=== PATIENT | male | born 1940 | race Caucasian/White ===

== ENCOUNTER 2016-10-04 19:19 | Emergency (ER) | payer MEDICARE, OTHER ==
[2016-10-04] MEDS ORDERED: ONDANSETRON 4 MG TAB.RAPDIS PO ONE (19:48)
--- NOTE | 2016-10-04 19:49 | ER Document Report ---
ED Respiratory Problem - General Stated Complaint: COUGHING/COLD Time seen by provider: 19:40 Notes: Patient is a 76-year-old male that comes emergency department for chief complaint of 4 days of cough, patient states he feels like he has a raw sensation inside the left side of his chest and he has pains in his left upper back. He reports some nausea but denies vomiting, denies diarrhea, denies abdominal pain. He denies specific chest pain. He denies fever, he states he is not short of breath. 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 Patient states he is up-to-date on both influenza vaccine and pneumonia vaccine. TRAVEL OUTSIDE OF THE [place] IN LAST 30 DAYS: No - Related Data Allergies/Adverse Reactions: tiotropium bromide [From Spiriva with HandiHaler] Allergy (Intermediate, Verified 10/04/16 21:36) Blurred vision amiodarone Allergy (Verified 10/04/16 21:36) hydroxyzine [From Atarax] Allergy (Verified 10/04/16 21:36) FIRE ANTS Allergy (Uncoded 10/04/16 21:36) THROAT AND GLANDS SWELL Home Medications: Current Home Medications Aclidinium [place] [Tudorza Pressair for Inh] 400 mcg IN DAILY 10/04/16 [History ] Atorvastatin Calcium 20 mg PO DAILY 10/04/16 [History] Multivit,Ther Iron,Ca,FA & Min [Thera-M Caplet] 1 cap PO DAILY 10/04/16 [History ] Oxycodone HCl/Acetaminophen [Oxycodone-Acetaminophen 5-325] 1 tab PO Q6 [History] Past Medical History - General Information source: Patient - Social History Smoking Status: Current Every Day Smoker Smoking Education Provided: Yes - <3 min Frequency of alcohol use: None Drug Abuse: None Lives with: Spouse/Significant other Family History: Reviewed & Not Pertinent - Past Medical History Cardiac Medical History: Reports: Hx Heart Attack - 2012 has 2 stents, Hx Hypercholesterolemia, Hx Hypertension Denies: Hx Coronary Artery Disease Pulmonary Medical History: Reports: Hx COPD Denies: Hx Bronchitis, Hx Pneumonia Neurological Medical History: Denies: Hx Cerebrovascular Accident, Hx Seizures Malignancy Medical History: Reports Hx Renal (Kidney) Cancer, Reports Other - pancreatic tumor - removed Musculoskeltal Medical History: Reports Hx Arthritis Psychiatric Medical History: Reports: Hx Anxiety Past Surgical History: Reports: Hx Abdominal Surgery - whipple procedure, Hx Bowel Surgery - PIECE REMOVED, Hx Cardiac Catheterization - stent placement, Hx Cholecystectomy, Hx Coronary Stent, Hx Herniorrhaphy - SEVERAL, Hx Kidney ( Renal Surgery) - RIGHT NEPHRECTOMY, Hx Tonsillectomy - A CHILD. Denies: Hx Pacemaker - Immunizations Immunizations up to date: Yes Hx Diphtheria, Pertussis, Tetanus Vaccination: Yes Hx Pneumococcal Vaccination: 11/06/12 Review of Systems - Review of Systems Constitutional: No symptoms reported EENT: No symptoms reported Cardiovascular: See HPI Respiratory: See HPI Gastrointestinal: No symptoms reported Genitourinary: No symptoms reported Male Genitourinary: No symptoms reported Musculoskeletal: No symptoms reported Skin: No symptoms reported Hematologic/Lymphatic: No symptoms reported Neurological/Psychological: No symptoms reported Physical Exam - Vital signs Vitals: Temp Pulse Resp BP Pulse Ox 98.0 F 80 17 124/61 98 10/04/16 19:32 10/04/16 19:32 10/04/16 19:32 10/04/16 19:32 10/04/16 19:32 Interpretation: Normal - General General appearance: Appears well In distress: None - HEENT Head: Normocephalic, Atraumatic Eyes: Normal Conjunctiva: Normal Extraocular movements intact: Yes Eyelashes: Normal Pupils: PERRL Nasal: Normal Mouth/Lips: Normal Mucous membranes: Normal Pharynx: Normal Neck: Normal - Respiratory Respiratory status: No respiratory distress. No: Respiratory distress, Labored , Tachypnea Chest status: Nontender Breath sounds: Other - A few coarse breath sounds, no wheezing, no rhonchi, no rales Chest palpation: Normal - Cardiovascular Rhythm: Regular Heart sounds: Normal auscultation Murmur: No - Abdominal Inspection: Other - There is a dressing over the right lateral mid abdomen, there is a large scar leading up to the dressing which is horizontal, there is a small wound opening with a tiny amount of clearish drainage. Mild soreness around the dressing area. Otherwise soft and unremarkable abdomen. Distension: No distension Bowel sounds: Normal Tenderness: Nontender Organomegaly: No organomegaly - Back Back: Normal, Nontender. No: Tender - Extremities General upper extremity: Normal inspection, Nontender, Normal color, Normal ROM , Normal temperature General lower extremity: Normal inspection, Nontender, Normal color, Normal ROM , Normal temperature, Normal weight bearing. 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 Chest x-ray consistent with right lower lobe pneumonia. Patient not hypoxic, no tachypnea, clear lung sounds, patient is well-appearing and conversational on exam. Discussed findings with patient and significant other, cultures pending, patient is not febrile. Patient given Rocephin, doxycycline, after this and a discussion patient will follow-up with his primary care provider on Thursday, patient states he feels good and he wants to go home, discussed return precautions and patient and agree that they will return immediately if patient worsens in any way. - Vital Signs Vital signs: Temp Pulse Resp BP Pulse Ox 98.0 F 80 18 123/63 96 10/04/16 19:32 10/04/16 19:32 10/04/16 22:01 10/04/16 22:01 10/04/16 22:01 - Laboratory Result Diagrams: 10/04/16 20:20 10/04/16 20:20 Laboratory results interpreted by me: 10/04/16 10/04/16 20:20 20:20 RBC 3.99 L Hgb 11.7 L Hct 35.7 L RDW 14.7 H Eosinophils % 6.6 H Chloride 109 H Albumin 3.3 L Discharge - Discharge Clinical Impression: Cough Pneumonia Qualifiers: Pneumonia type: due to unspecified organism Laterality: right Lung location: lower lobe of lung Qualified Code(s): J18.1 - Lobar pneumonia, unspecified organism Condition: Stable Disposition: HOME, SELF-CARE Additional Instructions: X-ray is consistent with pneumonia. He has been given Rocephin, please continue the doxycycline as directed, please be reevaluated by your primary care provider on Thursday. Return to the emergency department immediately for any concerning or worsening symptoms (i.e. shortness of breath or difficulty breathing) Prescriptions: Doxycycline Hyclate 100 mg PO BID #14 capsule Referrals: GIORGIO ORTIZ MD [Primary Care Provider] - Follow up as needed
[2016-10-04 20:41] LABS: ABSOLUTE BASOPHILS # (AUTO) 0.1 10^3/uL (0.0-0.2); ABSOLUTE EOSINOPHILS # (AUTO) 0.5 10^3/uL (0.0-0.6); ABSOLUTE LYMPHOCYTES (AUTO) 1.5 10^3/uL (0.5-4.7); BASOPHILS % (AUTO) 0.7 % (0-2); EOSINOPHILS % (AUTO) 6.6 % (0-6); HEMATOCRIT 35.7 % (37.9-51.0); HEMOGLOBIN 11.7 g/dL (13.5-17.0); HGB HCT DIFFERENCE -0.6; LYMPHOCYTES % (AUTO) 18.3 % (13-45); MEAN CORPUSCULAR HEMOGLOBIN 29.3 pg (27.0-33.4); MEAN CORPUSCULAR HGB CONC 32.7 g/dL (32.0-36.0); MEAN CORPUSCULAR VOLUME 90 fl (80-97); RED BLOOD COUNT 3.99 10^6/uL (4.35-5.55); RED CELL DISTRIBUTION WIDTH 14.7 % (11.5-14.0); SEGMENTED NEUTROPHILS % (AUTO) 62.4 % (42-78)
[2016-10-04 20:53] LABS: ALANINE AMINOTRANSFERASE 32 U/L (21-72); ALBUMIN 3.3 g/dL (3.5-5.0); ALKALINE PHOSPHATASE 119 U/L (38-126); ANION GAP 7 (5-19); ASPARTATE AMINO TRANSFERASE 30 U/L (17-59); BILIRUBIN,TOTAL 0.2 mg/dL (0.2-1.3); BLOOD UREA NITROGEN 13 mg/dL (7-20); CALCIUM 9.2 mg/dL (8.4-10.2); CARBON DIOXIDE 24 mmol/L (22-30); CHLORIDE 109 mmol/L (98-107); CREATINE KINASE 160 U/L (55-170); CREATININE RESULT 1.06 mg/dL (0.52-1.25); GLUCOSE 81 mg/dL (75-110); POTASSIUM 4.3 mmol/L (3.6-5.0); TOTAL PROTEIN 6.3 g/dL (6.3-8.2)
[2016-10-04 21:04] LABS: CREATINE KINASE MB 4.31 ng/mL (<4.55)
[2016-10-04 21:06] LABS: TROPONIN I < 0.012 ng/mL
[2016-10-04] MEDS ORDERED: DOXYCYCLINE HYCLATE 100 MG TABLET PO ONE (21:22)
[2016-10-04] MEDS ORDERED: CEFTRIAXONE 1 GM/D5W RTU 50 ML IV ONE (21:22)
[2016-10-04 22:22] VITALS: BP 123/63
--- NOTE | 2016-10-05 11:14 | EKG REPORT ---
SEVERITY:- OTHERWISE NORMAL ECG - SINUS RHYTHM BORDERLINE LEFT AXIS DEVIATION : Confirmed by: Lee Collazo MD 05-Oct-2016 11:14:18
== END 2016-10-04 22:30 | disposition home or self-care (01) ==
LOC: ER 19:19
DX: J18.1 Lobar pneumonia, unspecified organism (principal); M54.89 Other dorsalgia; J44.9 Chronic obstructive pulmonary disease, unspecified; E78.00 Pure hypercholesterolemia, unspecified; I10 Essential (primary) hypertension; Z85.528 Personal history of other malignant neoplasm of kidney; Z90.49 Acquired absence of other specified parts of digestive tract; I25.2 Old myocardial infarction
CPT/HCPCS: 93005; 99284; 96374; 36415; 87040; 82553; 82550; 85025; 80053; 84484; 71020; 93010; A9270; J0696

== ENCOUNTER → 2016-10-17 | Outpatient (CLI) | payer MEDICARE, OTHER ==
[2016-10-17 13:38] LABS: APPEARANCE,URINE CLEAR; BILIRUBIN,URINE NEGATIVE (NEGATIVE); GLUCOSE, URINE NEGATIVE (NEGATIVE); KETONES,URINE NEGATIVE (NEGATIVE); LEUKOCYTE ESTERASE,URINE NEGATIVE (NEGATIVE); NITRITE,URINE NEGATIVE (NEGATIVE); PROTEIN,URINE NEGATIVE (NEGATIVE); URINE SPECIFIC GRAVITY 1.021; UROBILINOGEN,URINE NEGATIVE mg/dL (<2.0)
[2016-10-17 13:39] LABS: RBC,URINE 0-1 /HPF; WBC,URINE 0-1 /HPF
== END ==
LOC: RAD 11:43
PROVIDERS: ATTEND Family Medicine
DX: R07.1 Chest pain on breathing (principal); R10.9 Unspecified abdominal pain
CPT/HCPCS: 71260; 81001

== ENCOUNTER 2016-10-30 17:01 | Inpatient (IN) | payer MEDICARE, OTHER ==
[2016-10-30] MEDS ORDERED: CEFEPIME 2 GM/D5W RTU 50 ML IV SCH (18:30)
[2016-10-30] MEDS ORDERED: VANCOMYCIN HCL 0 MG in DEXTROSE 5%-WATER 250 ML IV NR (18:30)
--- NOTE | 2016-10-30 18:58 | PDOC H&P ---
History of Present Illness Admission Date/PCP: 10/30/16 17:01 GIORGIO ORTIZ MD Patient complains of: left sided chest pain and persistent cough with fever History of Present Illness: SHA GIRALDO is a 76 year old male presents to the hospital as a direct admit from Dr. Ortiz's office where he was seen in follow-up for a pneumonia. Several weeks ago he presented to the emergency department with complaint of left shoulder pain and was diagnosed with a right-sided pneumonia and placed on a ten-day course of doxycycline. He states he really didn't see much improvement during this time and so follow-up with his PCP and she placed him on Omnicef and prednisone. The prednisone seemed to alleviate much of his shoulder pain and he finished the second course of antibiotics 3 days ago. Since that time he has started having fevers of 101 with rigors at home again with recurrence of his cough and left shoulder pain. He is easily winded and wheezing off and on throughout the day. He has increased fatigue, decreased exercise tolerance. He describes the left shoulder pain is underneath his left shoulder blade, nonradiating and a constant aching pain without alleviating or exacerbating factors and no other associated symptoms. He has underlying COPD and wears nocturnal O2 at 3 L/m, he has not required supplemental oxygen through the day. He also has obstructive sleep apnea and is supposed to wear nocturnal CPAP but chooses not to. He was reportedly hemodynamically stable in her office with a room-air sat of 94% but a temperature of 102 and so we were asked to directly admit for further treatment and management. 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 Renal/ Medical History: Reports: Other - Status post nephrectomy Malignancy Medical History: Reports: Renal (Kidney) Cancer Musculoskeltal Medical History: Reports: Arthritis Hematology: Reports: Anemia Past Surgical History Past Surgical History: Reports: Cardiac Catheterization - stent placement, Cholecystectomy, Coronary Stent, Herniorrhaphy - SEVERAL, Tonsillectomy - A CHILD Denies: Pacemaker Social History Smoking Status: Current Every Day Smoker Cigarettes Packs Per Day: 5 Number of Years Smokin Last Time Smoked: 2 days ago Frequency of Alcohol Use: Occasional Hx Recreational Drug Use: No Drugs: None Hx Prescription Drug Abuse: No - Advance Directive Resuscitation Status: Full Code Family History Family History: Reviewed & Not Pertinent, CAD Parental Family History Reviewed: Yes Children Family History Reviewed: Yes Sibling(s) Family History Reviewed.: Yes Medication/Allergy Home Medications: Metoprolol Tartrate [Lopressor 50 mg Tablet] 50 mg PO DAILY 10/06/11 Primidone 250 mg PO BID 10/06/11 Aspirin [Ecotrin 81 mg EC Tablet] 81 mg PO DAILY 08/05/12 Ascorbic Acid [Vitamin C] 500 mg PO DAILY 11/01/12 Esomeprazole Magnesium [Nexium] 40 mg PO QAM 11/01/12 Nitroglycerin [Nitrostat 0.4 mg (1/150 Gr) Tabs 25/Bottle] 1 tab SL Q5MP PRN 07/06 Albuterol Sulfate [Ventolin HFA MDI 18 GM] 1 puff IH Q4H PRN 01/24/13 Fluticasone/Salmeterol [Advair 250-50 Diskus 28 dose] 1 inh IH Q12H 10/16/14 Aclidinium [place] [Tudorza Pressair for Inh] 400 mcg IN DAILY 10/04/16 Atorvastatin Calcium 20 mg PO DAILY 10/04/16 Multivit,Ther Iron,Ca,FA & Min [Thera-M Caplet] 1 cap PO DAILY 10/04/16 Oxycodone HCl/Acetaminophen [Oxycodone-Acetaminophen 5-325] 1 tab PO Q6 PRN 07/10 Allergies/Adverse Reactions: tiotropium bromide [From Spiriva with HandiHaler] Allergy (Intermediate, Verified 10/04/16 21:36) Blurred vision amiodarone Allergy (Verified 10/04/16 21:36) hydroxyzine [From Atarax] Allergy (Verified 10/04/16 21:36) FIRE ANTS Allergy (Uncoded 10/04/16 21:36) THROAT AND GLANDS SWELL Review of Systems Constitutional: PRESENT: chills, fever(s). ABSENT: headache(s), weight gain, weight loss Eyes: ABSENT: visual disturbances Ears: ABSENT: hearing changes Nose, Mouth, and Throat: ABSENT: sore throat Cardiovascular: PRESENT: dyspnea on exertion. ABSENT: chest pain, edema, orthropnea, palpitations Respiratory: PRESENT: cough, dyspnea, sputum. ABSENT: hemoptysis Gastrointestinal: ABSENT: abdominal pain, constipation, diarrhea, hematemesis, hematochezia, nausea, vomiting Genitourinary: ABSENT: dysuria, hematuria Musculoskeletal: ABSENT: joint swelling Integumentary: ABSENT: rash, wounds Neurological: ABSENT: abnormal gait, abnormal speech, confusion, dizziness, focal weakness, numbness, syncope, tingling Psychiatric: ABSENT: anxiety, depression Endocrine: ABSENT: cold intolerance, heat intolerance, polydipsia, polyuria Hematologic/Lymphatic: ABSENT: easy bleeding, easy bruising Physical Exam Vital Signs: Temp Pulse Resp BP Pulse Ox 98.6 F 81 16 123/63 97 10/30/16 17:32 10/30/16 17:32 10/30/16 17:32 10/30/16 17:32 10/30/16 17:32 Intake & Output 10/29/16 10/30/16 10/31/16 06:59 06:59 06:59 Weight 68.8 kg PHYSICAL EXAM GENERAL: NAD; well developed, well nourished; no obese; alert and oriented to person, place, time, situation HEENT: normocephalic, atraumatic; EOMI, PERRLA, no conjunctival injection, no scleral icterus; oral mucosa moist, neck supple, no LAD, normal ROM; no post oropharynx erythema or edema RESPIRATORY: no accessory muscle use, no increased WOB, good air entry bilaterally; no wheezes, rales, rhonchi; coarse crackles L>R CARDIO: no JVD; RRR; no systolic murmur; no tachycardia VASCULAR: no abdominal bruit; no pallor; 2+ radial, DP pulse; normal capillary refill GI: soft; nondistended; normal bowel sounds; no hepato spleno megaly; no rebound, rigidity, guarding; nontender; there is a long linear diagonal scar across the right abdomen and at the distalmost tip there is a small 1-1/2 cm opening of the wound that is losing a tannish creamy white, thick non- malodorous fluid NEURO: normal motor function; no gait abnls; no dysarthria; no nystagmus; tongue protrudes midline; MSK: 5/5 strength; normal ROM hips; ambulatory without assistance; no tenderness EXTREMITIES: no calf tender; no palpable cords in calf; no clubbing, cyanosis , pedal edema PSYCH: normal affect, normal mood SKIN: warm; moist; no petechiae; no telengectasias; no jaundice; Assessment & Plan - Diagnosis (1) Pneumonia Qualifiers: Pneumonia type: due to unspecified organism Lung location: unspecified part of lung Is this a current diagnosis for this admission?: YesPlan: He has a history of complicated pneumonia in the past with MRSA discovered in his sputum and requiring a prolonged course of antibiotics. He seems to be failing outpatient therapy with both Omnicef and doxycycline which should've provided good atypical coverage. He has not traveled outside the [facility], has not had a prolonged travel or immobility, has no sick contacts or exposure to tuberculosis or other unusual organisms that he is aware of and has no worrisome symptoms of lianne sputum, hemoptysis, history of cavitary lesions, night sweats or weight loss. He'll be admitted to a monitored bed for at least the first 24 hours, started on broad-spectrum antibiotics to cover pseudomonas and MRSA. Sputum and blood cultures will be sent. I see a CT scan of the chest on October 17 that showed faint airspace disease on the right but his lung exam seems much more pronounced and diffuse this evening so we will repeat the CT scan but do it without contrast due to his history of unilateral nephrectomy and chronic kidney disease stage II. We'll check routine labs including CBC, CMP, BNP, CK/MB, troponin and swab for influenza A and B (2) Coronary artery disease Qualifiers: Coronary Disease-Associated Artery/Lesion type: [place] artery [place] vs. transplanted heart: [place] heart Associated angina: without angina Qualified Code(s): I25.10 - Atherosclerotic heart disease of [place] coronary artery without angina pectoris Is this a current diagnosis for this admission?: NoPlan: By history has coronary stents and I do not feel his left shoulder pain as a cardiac equivalent, that being said will screen with EKG and first set of cardiac enzymes just to be safe while monitoring overnight for cardiac dysrhythmias. Otherwise continue his usual home regimen (3) Left shoulder pain Qualifiers: Chronicity: acute Qualified Code(s): M25.512 - Pain in left shoulder Is this a current diagnosis for this admission?: YesPlan: Unclear etiology, is not reproducible to exam. Follow up on the CT scan perhaps there is a pleuritic component to this. Hold on additional steroids at this time, provide mild analgesics as needed. (4) History of nephrectomy, unilateral Is this a current diagnosis for this admission?: YesPlan: We will need to keep this in mind when choosing dosages and testing because we want carefully protect his remaining kidney. (5) COPD (chronic obstructive pulmonary disease) Qualifiers: COPD type: unspecified COPD Qualified Code(s): J44.9 - Chronic obstructive pulmonary disease, unspecified Is this a current diagnosis for this admission?: YesPlan: No active bronchospasm at present moment wouldn't surprise me if this were to flare during his hospitalization. Treat with nebs for now, nocturnal supplemental O2 per usual home regimen (6) Nonhealing surgical wound Qualifiers: Encounter type: initial encounter Qualified Code(s): T81.89XA - Other complications of procedures, not elsewhere classified, initial encounter Is this a current diagnosis for this admission?: YesPlan: Cover with ABD bandage and dry gauze twice a day as they're doing at home. - Time Time Spent: 50 to 70 Minutes Medications reviewed and adjusted accordingly: Yes Anticipated discharge: Home Within: within 72 hours
[2016-10-30] MEDS ORDERED: ACETAMINOPHEN 325 MG TABLET PO PRN (18:59)
[2016-10-30] MEDS ORDERED: CEFEPIME HCL 2 GM in DEXTROSE 5%-WATER 50 ML IV ONE (19:00)
[2016-10-30] MEDS ORDERED: HYDROCODONE/ACETAMINOPHEN 5-325 MG TABLET PO PRN (19:00)
[2016-10-30] MEDS ORDERED: MORPHINE SULFATE 10 MG/ML INJ IV PRN (19:00)
[2016-10-30 19:56] LABS: ABSOLUTE EOSINOPHILS # (AUTO) 0.2 10^3/uL (0.0-0.6); ABSOLUTE LYMPHOCYTES (AUTO) 0.8 10^3/uL (0.5-4.7); ABSOLUTE MONOCYTES (AUTO) 1.1 10^3/uL (0.1-1.4); ABSOLUTE NEUT (AUTO) 5.2 10^3/uL (1.7-8.2); BASOPHILS % (AUTO) 0.5 % (0-2); HEMATOCRIT 37.3 % (37.9-51.0); HEMOGLOBIN 12.2 g/dL (13.5-17.0); HGB HCT DIFFERENCE -0.7; LYMPHOCYTES % (AUTO) 11.2 % (13-45); MEAN CORPUSCULAR HEMOGLOBIN 29.4 pg (27.0-33.4); MEAN CORPUSCULAR HGB CONC 32.7 g/dL (32.0-36.0); MEAN CORPUSCULAR VOLUME 90 fl (80-97); RED BLOOD COUNT 4.15 10^6/uL (4.35-5.55); RED CELL DISTRIBUTION WIDTH 15.1 % (11.5-14.0); SEGMENTED NEUTROPHILS % (AUTO) 71.3 % (42-78); WHITE BLOOD COUNT 7.4 10^3/uL (4.0-10.5)
[2016-10-30 20:17] LABS: ALANINE AMINOTRANSFERASE 59 U/L (21-72); ALBUMIN 3.4 g/dL (3.5-5.0); ALKALINE PHOSPHATASE 135 U/L (38-126); ANION GAP 10 (5-19); ASPARTATE AMINO TRANSFERASE 49 U/L (17-59); BILIRUBIN,TOTAL 0.3 mg/dL (0.2-1.3); BLOOD UREA NITROGEN 17 mg/dL (7-20); CALCIUM 9.1 mg/dL (8.4-10.2); CARBON DIOXIDE 22 mmol/L (22-30); CHLORIDE 107 mmol/L (98-107); CREATINE KINASE 88 U/L (55-170); GLUCOSE 85 mg/dL (75-110); POTASSIUM 4.3 mmol/L (3.6-5.0); SODIUM 138.8 mmol/L (137-145); TOTAL PROTEIN 6.6 g/dL (6.3-8.2)
[2016-10-30 20:29] LABS: TROPONIN I < 0.012 ng/mL
[2016-10-30] MEDS: NORMAL SALINE 1000 ML 1,000 ML IV PRN (20:29)
[2016-10-30] MEDS: GUAIFENESIN 600 MG TABLET.SA PO SCH (21:39)
[2016-10-30] MEDS ORDERED: LEVOFLOXACIN 750 MG/D5W RTU 750 MG/150 ML RTUPB IV ONE (22:00)
[2016-10-30] MEDS: VANCOMYCIN HCL 750 MG in DEXTROSE 5%-WATER 250 ML IV SCH (22:42)
[2016-10-31] MEDS ORDERED: PRIMIDONE 250 MG TABLET PO ONE ×2 (03:30→12:00)
[2016-10-31] MEDS: CEFEPIME HCL 2 GM in DEXTROSE 5%-WATER 50 ML IV SCH ×2 (05:42→17:27)
[2016-10-31] MEDS: LANSOPRAZOLE 15 MG TAB.RAP.DR PO SCH (05:42)
[2016-10-31 06:49] LABS: HEMATOCRIT 34.2 % (37.9-51.0); HEMOGLOBIN 11.3 g/dL (13.5-17.0); HGB HCT DIFFERENCE -0.3; MEAN CORPUSCULAR HEMOGLOBIN 29.6 pg (27.0-33.4); MEAN CORPUSCULAR VOLUME 90 fl (80-97); RED BLOOD COUNT 3.81 10^6/uL (4.35-5.55); RED CELL DISTRIBUTION WIDTH 14.9 % (11.5-14.0); WHITE BLOOD COUNT 5.8 10^3/uL (4.0-10.5)
[2016-10-31 07:49] LABS: BASOPHILS % (MANUAL) 1 % (0-2); EOSINOPHILS % (MANUAL) 5 % (0-6); LYMPHOCYTES % (MANUAL) 19 % (13-45); TOTAL CELLS COUNTED 100
[2016-10-31 07:50] LABS: ANISOCYTOSIS SLIGHT; BURR CELLS SLIGHT; OVALOCYTES SLIGHT; POIKILOCYTOSIS 1+
[2016-10-31] MEDS: ENOXAPARIN SODIUM INJ 40 MG/0.4 ML DISP.SYRIN SUBCUT SCH (08:15)
[2016-10-31] MEDS: VANCOMYCIN HCL 750 MG in DEXTROSE 5%-WATER 250 ML IV SCH ×2 (10:01→22:36)
[2016-10-31] MEDS: GUAIFENESIN 600 MG TABLET.SA PO SCH ×2 (10:01→21:28)
[2016-10-31] MEDS: PRIMIDONE 250 MG TABLET PO SCH ×2 (10:02→17:27)
[2016-10-31] MEDS: NORMAL SALINE 1000 ML 1,000 ML IV PRN (10:02)
[2016-10-31] MEDS ORDERED: DIAZEPAM 5 MG TABLET PO PRN (10:55)
[2016-10-31] MEDS ORDERED: PRIMIDONE 250 MG TABLET PO SCH (11:00)
[2016-10-31] MEDS ORDERED: DEXAMETHASONE SOD PHOS INJ 10 MG/1 ML VIAL IV ONE (11:45)
[2016-10-31] MEDS ORDERED: METOPROLOL SUCCINATE 50 MG TAB.SR.24H PO ONE (11:45)
--- NOTE | 2016-10-31 15:03 | PDOC PROGRESS REPORT ---
Subjective Progress Note for:: 10/31/16 Subjective:: reason for today's visit: f/u pneumonia, left sided chest pain hospital course: SHA GIRALDO is a 76 year old male presents to the hospital as a direct admit from Dr. Katz's office where he was seen in follow- up for a pneumonia. Several weeks ago he presented to the emergency department with complaint of left shoulder pain and was diagnosed with a right-sided pneumonia and placed on a ten-day course of doxycycline. He states he really didn't see much improvement during this time and so follow-up with his PCP and she placed him on Omnicef and prednisone. The prednisone seemed to alleviate much of his shoulder pain and he finished the second course of antibiotics 3 days ago. Since that time he has started having fevers of 101 with rigors at home again with recurrence of his cough and left shoulder pain. He is easily winded and wheezing off and on throughout the day. He has increased fatigue, decreased exercise tolerance. He describes the left shoulder pain is underneath his left shoulder blade, nonradiating and a constant aching pain without alleviating or exacerbating factors and no other associated symptoms. He has underlying COPD and wears nocturnal O2 at 3 L/m, he has not required supplemental oxygen through the day. He also has obstructive sleep apnea and is supposed to wear nocturnal CPAP but chooses not to. He was reportedly hemodynamically stable in her office with a room-air sat of 94% but a temperature of 102 and so we were asked to directly admit for further treatment and management. he was admitted to the hospital and labs remarkable only for a mild anemia, mild elevation of his BNP, good renal function, normal ecg and cardiac enzymes, neg flu screen and little else. I do not see an echo on record so that has been ordered for today. repeat ct chest looks frustratingly similar to the one performed in late Sep with persistent consolidation in the RLL, aortic and coronary calcifications and little else. Subjective: doesn't feel any different with broadening of his abx. still with same left sided chest pain, general malaise and ill feeling as before. denies palpitations, orthopnea, PND, N/V/D. ROS: per HPI plus a total of 10 systems reviewed, pertinent positives and negatives noted above, remaining systems negative. Physical Exam Vital Signs: Temp Pulse Resp BP Pulse Ox 98.6 F 78 16 125/66 97 10/31/16 13:00 10/31/16 14:00 10/31/16 13:00 10/31/16 13:00 10/31/16 13:00 Intake & Output 10/30/16 10/31/16 11/01/16 06:59 06:59 06:59 Intake Total 400 Output Total 1250 Balance -850 Weight 70.3 kg PHYSICAL EXAM GENERAL: NAD; well developed, well nourished; no obese; alert and oriented to person, place, time, situation HEENT: no conjunctival injection, no scleral icterus; oral mucosa moist, neck supple, no LAD, normal ROM; no post oropharynx erythema or edema RESPIRATORY: no accessory muscle use, no increased WOB, good air entry bilaterally; no wheezes, rales, rhonchi; coarse bilat crackles CARDIO: no JVD; RRR; no systolic murmur; no tachycardia; chest wall is nontender to palp VASCULAR: no abdominal bruit; no pallor; 2+ radial, DP pulse; normal capillary refill GI: soft; nondistended; normal bowel sounds; no rebound, rigidity, guarding; nontender; there is a long linear diagonal scar across the right abdomen and at the distal most tip there is a small 1-1/2 cm opening of the wound that is losing a tannish creamy white, thick non-malodorous fluid NEURO: normal motor function; no gait abnls; no dysarthria; no nystagmus; tongue protrudes midline; MSK: 5/5 strength; normal ROM hips; ambulatory without assistance; no tenderness EXTREMITIES: no calf tender; no palpable cords in calf; no clubbing, cyanosis , pedal edema PSYCH: normal affect, normal mood SKIN: warm; moist; no petechiae; no telengectasias; no jaundice; Results Laboratory Results: 10/31/16 05:27 10/30/16 19:40 10/30/16 10/30/16 10/31/16 19:40 19:40 05:27 WBC 7.4 5.8 RBC 4.15 L 3.81 L Hgb 12.2 L 11.3 L Hct 37.3 L 34.2 L MCV 90 90 MCH 29.4 29.6 MCHC 32.7 33.0 RDW 15.1 H 14.9 H Plt Count 214 184 Seg Neutrophils % 71.3 Not Reportable Lymphocytes % 11.2 L Not Reportable Monocytes % 15.0 H Not Reportable Eosinophils % 2.0 Not Reportable Basophils % 0.5 Not Reportable Absolute Neutrophils 5.2 Not Reportable Absolute Lymphocytes 0.8 Not Reportable Absolute Monocytes 1.1 Not Reportable Absolute Eosinophils 0.2 Not Reportable Absolute Basophils 0.0 Not Reportable Sodium 138.8 Potassium 4.3 Chloride 107 Carbon Dioxide 22 Anion Gap 10 BUN 17 Creatinine 1.10 Est GFR ( Amer) > 60 Est GFR (Non-Af Amer) > 60 Glucose 85 Calcium 9.1 Total Bilirubin 0.3 AST 49 ALT 59 Alkaline Phosphatase 135 H Total Protein 6.6 Albumin 3.4 L 10/30/16 10/30/16 19:40 19:40 Creatine Kinase 88 CK-MB (CK-2) 2.50 Troponin I < 0.012 NT-Pro-B Natriuret Pep 861 H labs reviewed, see HPI EKG Comments: NSR Impressions: Chest CT 10/30/16 00:00 IMPRESSION: EMPHYSEMATOUS CHANGES WITH CHRONIC SCARRING. MINIMAL RIGHT PLEURAL EFFUSION. PERSISTENT PATCHY DENSITY IN THE RIGHT COSTOPHRENIC SULCUS. NO SIGNIFICANT CHANGE. Status: Imported from PACS Assessment & Plan - Diagnosis (1) Pneumonia Qualifiers: Pneumonia type: due to unspecified organism Laterality: right Lung location: lower lobe of lung Qualified Code(s): J18.1 - Lobar pneumonia, unspecified organism Is this a current diagnosis for this admission?: YesPlan: He has a history of complicated pneumonia in the past with MRSA discovered in his sputum and requiring a prolonged course of antibiotics. He seems to be failing outpatient therapy with both Omnicef and doxycycline which should've provided at least good atypical coverage. He has not traveled outside the [facility], has not had any prolonged travel or immobility, has no sick contacts or exposure to tuberculosis or other unusual pathogens (ie legionella, etc) that he is aware of and has no worrisome symptoms of lianne sputum, hemoptysis, history of cavitary lesions, night sweats or weight loss. Continue broad-spectrum antibiotics to cover pseudomonas and MRSA. Sputum and blood cultures sent. I see a CT scan of the chest on October 17 that showed faint airspace disease on the right that persists on repeat CT Scan. (2) Coronary artery disease Qualifiers: Coronary Disease-Associated Artery/Lesion type: [place] artery [place] vs. transplanted heart: jena heart Associated angina: without angina Qualified Code(s): I25.10 - Atherosclerotic heart disease of j[place] coronary artery without angina pectoris Is this a current diagnosis for this admission?: NoPlan: By history has coronary stents but I do not feel his left shoulder pain is a cardiac equivalent and screen with EKG and first set of cardiac enzymes reassuring and monitoring overnight negative for cardiac dysrhythmias. ck echo today and continue his usual home regimen (3) Left shoulder pain Qualifiers: Chronicity: acute Qualified Code(s): M25.512 - Pain in left shoulder Is this a current diagnosis for this admission?: YesPlan: Unclear etiology, is not reproducible to exam. CT scan not very helpful, perhaps referred pain from the RLL airspace disease? add steroids and monitor for result. (4) History of nephrectomy, unilateral Is this a current diagnosis for this admission?: Yes (5) COPD (chronic obstructive pulmonary disease) Qualifiers: COPD type: unspecified COPD Qualified Code(s): J44.9 - Chronic obstructive pulmonary disease, unspecified Is this a current diagnosis for this admission?: Yes (6) Nonhealing surgical wound Qualifiers: Encounter type: initial encounter Qualified Code(s): T81.89XA - Other complications of procedures, not elsewhere classified, initial encounter Is this a current diagnosis for this admission?: Yes (7) Abnormal laboratory test Is this a current diagnosis for this admission?: YesPlan: elevated BNP; ck echo, do not see one in his chart. hold IVFs. - Time Time Spent with patient: 35 or more minutes
--- NOTE | 2016-10-31 17:52 | XCELERA REPORT ---
[address] [address] Transthoracic Echocardiogram Report Name: SHA GIRALDO Age: 76 yrs Gender: Male : 1940 Patient Status: Inpatient Patient Location: N\S\[facility]\S\A Study Date: 10/31/2016 03:05 PM Height: 69 in Weight: 154 lb BSA: 1.8 m2 Procedure: A two-dimensional transthoracic echocardiogram with color flow and Doppler was performed. The study was technically difficult with many images being suboptimal in quality. Reason For Study: DYSPNEA / ELEVATED BNP History: DYSPNEA / ELEVATED BNP. Ordering Physician: JIGAR LOPEZ Performed By: Caprice Wren Interpretation Summary The left ventricle is normal in size. There is normal left ventricular wall thickness. LV EF is 60% Left ventricular systolic function is normal. Doppler measurements suggest impaired left ventricular relaxation, which is associated with grade I/IV or mild diastolic dysfunction The left ventricular wall motion is normal. There is no thrombus. The right ventricle is grossly normal size. The right ventricle is not well visualized secondary to technical limitations The left atrial size is normal. There is no evidence of mitral valve prolapse. There is no mitral valve stenosis. There is no mitral regurgitation noted. There is no aortic valve stenosis There is no LVOT obstruction. No aortic regurgitation is present. There is no tricuspid stenosis. There is a trace amount of tricuspid regurgitation Right ventricular systolic pressure is normal. RVSP is 28 mm of Hg , with RA mean of 5. There is no pericardial effusion. Cannot eexclude small PFO. MMode/2D Measurements \T\ Calculations RVDd: 3.4 cm LVIDd: 4.6 cm FS: 41.6 % Ao root diam: 2.9 cm IVSd: 0.94 cm LVIDs: 2.7 cm EDV(Teich): 95.6 ml LVPWd: 0.88 cm ESV(Teich): 26.2 ml Ao root area: 6.6 cm2 EF(Teich): 72.6 % LA dimension: 3.1 cm Doppler Measurements \T\ Calculations MV E max valery: MV P1/2t max valery: Ao V2 max: LV V1 max P.8 cm/sec 89.3 cm/sec 114.0 cm/sec 3.1 mmHg MV A max valery: MV P1/2t: 43.0 msec Ao max PG: LV V1 max: 90.8 cm/sec 5.2 mmHg 87.9 cm/sec MV E/A: 0.99 MVA(P1/2t): 5.1 cm2 MV dec slope: 608.6 cm/sec2 MV dec time: 0.15 sec PA V2 max: PI end-d valery: TR max valery: 99.7 cm/sec 161.8 cm/sec 238.9 cm/sec PA max PG: TR max P.0 mmHg 22.8 mmHg Left Ventricle The left ventricle is normal in size. There is normal left ventricular wall thickness. LV EF is 60%. Left ventricular systolic function is normal. Doppler measurements suggest impaired left ventricular relaxation, which is associated with grade I/IV or mild diastolic dysfunction. The left ventricular wall motion is normal. There is no thrombus. There is no ventricular septal defect visualized. Right Ventricle The right ventricle is grossly normal size. The right ventricle is not well visualized secondary to technical limitations. Atria The right atrium is normal. The left atrial size is normal. Cannot eexclude small PFO. Mitral Valve There is no evidence of mitral valve prolapse. There is no vegetation seen on the mitral valve. There is no mitral valve stenosis. There is no mitral regurgitation noted. Aortic Valve There is no aortic valvular vegetation. There is no aortic valve stenosis. There is no LVOT obstruction. No aortic regurgitation is present. Tricuspid Valve There is no tricuspid stenosis. There is a trace amount of tricuspid regurgitation. Right ventricular systolic pressure is normal. RVSP is 28 mm of Hg , with RA mean of 5. Pulmonic Valve There is no pulmonic valvular stenosis. There is a trace amount of pulmonic regurgitation. Great Vessels The aortic root is normal size. Effusions There is no pericardial effusion. : JIGAR LOPEZ > Belinda Currie
[2016-10-31] MEDS: ALBUTEROL SULFATE 0.083% NEB 2.5 MG/3 ML AMPUL NEB PRN (19:22)
--- NOTE | 2016-10-31 19:42 | EKG REPORT ---
SEVERITY:- OTHERWISE NORMAL ECG - SINUS RHYTHM BORDERLINE LEFT AXIS DEVIATION : Confirmed by: Rosenda Ayala 31-Oct-2016 19:41:40
[2016-10-31] MEDS: FLUTICASONE/SALMETEROL DISKUS 250-50 MCG/DOSE IH SCH (21:28)
[2016-10-31] MEDS: LEVOFLOXACIN 750 MG/D5W RTU 750 MG/150 ML RTUPB IV SCH (21:28)
[2016-10-31] MEDS: ATORVASTATIN CALCIUM 20 MG TABLET PO SCH (21:28)
[2016-11-01] MEDS: CEFEPIME HCL 2 GM in DEXTROSE 5%-WATER 50 ML IV SCH ×2 (05:21→17:32)
[2016-11-01] MEDS: LANSOPRAZOLE 15 MG TAB.RAP.DR PO SCH (05:21)
[2016-11-01 07:07] LABS: ABSOLUTE LYMPHOCYTES (AUTO) 1.1 10^3/uL (0.5-4.7); ABSOLUTE NEUT (AUTO) 3.4 10^3/uL (1.7-8.2); BASOPHILS % (AUTO) 0.5 % (0-2); EOSINOPHILS % (AUTO) 0.6 % (0-6); HEMATOCRIT 34.2 % (37.9-51.0); HEMOGLOBIN 11.3 g/dL (13.5-17.0); HGB HCT DIFFERENCE -0.3; LYMPHOCYTES % (AUTO) 19.9 % (13-45); MEAN CORPUSCULAR HEMOGLOBIN 29.6 pg (27.0-33.4); MEAN CORPUSCULAR VOLUME 90 fl (80-97); MONOCYTES % (AUTO) 17.5 % (3-13); RED BLOOD COUNT 3.81 10^6/uL (4.35-5.55); SEGMENTED NEUTROPHILS % (AUTO) 61.5 % (42-78); WHITE BLOOD COUNT 5.6 10^3/uL (4.0-10.5)
[2016-11-01] MEDS: ENOXAPARIN SODIUM INJ 40 MG/0.4 ML DISP.SYRIN SUBCUT SCH (08:12)
[2016-11-01] MEDS: PRIMIDONE 250 MG TABLET PO SCH ×2 (09:05→17:32)
[2016-11-01] MEDS: FLUTICASONE/SALMETEROL DISKUS 250-50 MCG/DOSE IH SCH ×2 (09:05→21:11)
[2016-11-01] MEDS: MULTIVITAMIN TABLET PO SCH (09:05)
[2016-11-01] MEDS: GUAIFENESIN 600 MG TABLET.SA PO SCH ×2 (09:06→21:11)
[2016-11-01] MEDS: METOPROLOL SUCCINATE 50 MG TAB.SR.24H PO SCH (09:06)
[2016-11-01] MEDS: ASPIRIN 81 MG TABLET, ENT COATED PO SCH (09:10)
[2016-11-01] MEDS ORDERED: MULTIVITAMINS THERAPEUTIC PO SCH (10:00)
[2016-11-01] MEDS: VANCOMYCIN HCL 750 MG in DEXTROSE 5%-WATER 250 ML IV SCH (10:11)
[2016-11-01 11:00] LABS: CREATININE RESULT 0.94 mg/dL (0.52-1.25)
[2016-11-01] MEDS: ALBUTEROL SULFATE 0.083% NEB 2.5 MG/3 ML AMPUL NEB PRN (12:45)
--- NOTE | 2016-11-01 13:33 | PDOC PROGRESS REPORT ---
Subjective Progress Note for:: 11/01/16 Subjective:: reason for today's visit: f/u pneumonia, left sided chest pain hospital course: SHA GIRALDO is a 76 year old male presents to the hospital as a direct admit from Dr. Katz's office where he was seen in follow- up for a pneumonia. Several weeks ago he presented to the emergency department with complaint of left shoulder pain and was diagnosed with a right-sided pneumonia and placed on a ten-day course of doxycycline. He states he really didn't see much improvement during this time and so follow-up with his PCP and she placed him on Omnicef and prednisone. The prednisone seemed to alleviate much of his shoulder pain and he finished the second course of antibiotics 3 days ago. Since that time he has started having fevers of 101 with rigors at home again with recurrence of his cough and left shoulder pain. He is easily winded and wheezing off and on throughout the day. He has increased fatigue, decreased exercise tolerance. He describes the left shoulder pain is underneath his left shoulder blade, nonradiating and a constant aching pain without alleviating or exacerbating factors and no other associated symptoms. He has underlying COPD and wears nocturnal O2 at 3 L/m, he has not required supplemental oxygen through the day. He also has obstructive sleep apnea and is supposed to wear nocturnal CPAP but chooses not to. He was reportedly hemodynamically stable in her office with a room-air sat of 94% but a temperature of 102 and so we were asked to directly admit for further treatment and management. he was admitted to the hospital and labs remarkable only for a mild anemia, mild elevation of his BNP, good renal function, normal ecg and cardiac enzymes, neg flu screen and little else. I do not see an echo on record so that has been ordered for today. repeat ct chest looks frustratingly similar to the one performed in late Sep with persistent consolidation in the RLL, aortic and coronary calcifications and little else. Subjective: feels a bit better today after decadron yesterday, still with left sided chest pain but improved; still c/o general malaise. denies palpitations, orthopnea, PND, N/V/D. ROS: per HPI plus a total of 10 systems reviewed, pertinent positives and negatives noted above, remaining systems negative. Physical Exam Vital Signs: Temp Pulse Resp BP Pulse Ox 98.0 F 68 16 136/64 H 98 11/01/16 07:31 11/01/16 12:45 11/01/16 12:45 11/01/16 07:31 11/01/16 07:31 Intake & Output 10/31/16 11/01/16 11/02/16 06:59 06:59 07:59 Intake Total 400 5288 Output Total 1250 3025 Balance -850 2263 Weight 70.3 kg PHYSICAL EXAM GENERAL: NAD; well developed, well nourished; no obese; alert and oriented to person, place, time, situation HEENT: no conjunctival injection, no scleral icterus; oral mucosa moist, neck supple, no LAD, normal ROM; no post oropharynx erythema or edema RESPIRATORY: no accessory muscle use, no increased WOB, good air entry bilaterally; no wheezes, rales, rhonchi; coarse bilat crackles CARDIO: no JVD; RRR; no systolic murmur; no tachycardia; chest wall is nontender to palp VASCULAR: no abdominal bruit; no pallor; 2+ radial, DP pulse; normal capillary refill GI: soft; nondistended; normal bowel sounds; no rebound, rigidity, guarding; nontender; there is a long linear diagonal scar across the right abdomen and at the distal most tip there is a small 1-1/2 cm opening of the wound that continues to ooze tannish creamy white, thick non-malodorous fluid NEURO: normal motor function; no gait abnls; no dysarthria; no nystagmus; tongue protrudes midline; MSK: 5/5 strength; normal ROM hips; ambulatory without assistance; no tenderness EXTREMITIES: no calf tender; no palpable cords in calf; no clubbing, cyanosis , pedal edema PSYCH: normal affect, normal mood SKIN: warm; moist; no petechiae; no telengectasias; no jaundice; Results Laboratory Results: 11/01/16 06:55 11/01/16 09:52 11/01/16 11/01/16 11/01/16 05:31 06:55 09:52 WBC Cancelled 5.6 RBC Cancelled 3.81 L Hgb Cancelled 11.3 L Hct Cancelled 34.2 L MCV Cancelled 90 MCH Cancelled 29.6 MCHC Cancelled 33.0 RDW Cancelled 15.0 H Plt Count Cancelled 199 Seg Neutrophils % Cancelled 61.5 Lymphocytes % Cancelled 19.9 Monocytes % Cancelled 17.5 H Eosinophils % Cancelled 0.6 Basophils % Cancelled 0.5 Absolute Neutrophils Cancelled 3.4 Absolute Lymphocytes Cancelled 1.1 Absolute Monocytes Cancelled 1.0 Absolute Eosinophils Cancelled 0.0 Absolute Basophils Cancelled 0.0 Creatinine 0.94 Est GFR ( Amer) > 60 Est GFR (Non-Af Amer) > 60 10/30/16 10/30/16 11/01/16 19:40 19:40 05:31 Creatine Kinase 88 CK-MB (CK-2) 2.50 Troponin I < 0.012 NT-Pro-B Natriuret Pep 861 H 1070 H Assessment & Plan - Diagnosis (1) Pneumonia Qualifiers: Pneumonia type: due to unspecified organism Laterality: right Lung location: lower lobe of lung Qualified Code(s): J18.1 - Lobar pneumonia, unspecified organism Is this a current diagnosis for this admission?: YesPlan: He has a history of complicated pneumonia in the past with MRSA discovered in his sputum and requiring a prolonged course of antibiotics. He seems to be failing outpatient therapy with both Omnicef and doxycycline which should've provided at least good atypical coverage. He has not traveled outside the state [facility], has not had any prolonged travel or immobility, has no sick contacts or exposure to tuberculosis or other unusual pathogens (ie legionella, etc) that he is aware of and has no worrisome symptoms of lianne sputum, hemoptysis, history of cavitary lesions, night sweats or weight loss. Continue broad-spectrum antibiotics to cover pseudomonas and MRSA. Sputum and blood cultures sent but so far unrevealing. I see a CT scan of the chest on October 17 that showed faint airspace disease on the right that persists on repeat CT Scan this admit. interestingly his is now down with the flu or other viral illness. I have suspected a viral source for him from the beginning but he screened negative for flu. will send EBV titers. (2) Coronary artery disease Qualifiers: Coronary Disease-Associated Artery/Lesion type: [place] artery [place] vs. transplanted heart: [place] heart Associated angina: without angina Qualified Code(s): I25.10 - Atherosclerotic heart disease of [place] coronary artery without angina pectoris Is this a current diagnosis for this admission?: No (3) Left shoulder pain Qualifiers: Chronicity: acute Qualified Code(s): M25.512 - Pain in left shoulder Is this a current diagnosis for this admission?: YesPlan: Unclear etiology, is not reproducible to exam. CT scan not very helpful, perhaps referred pain from the RLL airspace disease? added steroids with good result. (4) History of nephrectomy, unilateral Is this a current diagnosis for this admission?: Yes (5) COPD (chronic obstructive pulmonary disease) Qualifiers: COPD type: unspecified COPD Qualified Code(s): J44.9 - Chronic obstructive pulmonary disease, unspecified Is this a current diagnosis for this admission?: Yes (6) Nonhealing surgical wound Qualifiers: Encounter type: initial encounter Qualified Code(s): T81.89XA - Other complications of procedures, not elsewhere classified, initial encounter Is this a current diagnosis for this admission?: Yes (7) Abnormal laboratory test Is this a current diagnosis for this admission?: YesPlan: elevated BNP; echo shows only some mild diastolic dysfunction as a possibility, good LV function with EF 60%. hold IVFs. - Time Time Spent with patient: 15-24 minutes - Plan Summary Plan Summary: anticipate d/c thursday, barring any new complication or events.
[2016-11-01] MEDS: ATORVASTATIN CALCIUM 20 MG TABLET PO SCH (21:11)
[2016-11-01] MEDS: LEVOFLOXACIN 750 MG/D5W RTU 750 MG/150 ML RTUPB IV SCH (21:11)
[2016-11-01] MEDS: VANCOMYCIN HCL 1,500 MG in DEXTROSE 5%-WATER 250 ML IV SCH (22:52)
[2016-11-02] MEDS: CEFEPIME HCL 2 GM in DEXTROSE 5%-WATER 50 ML IV SCH ×2 (05:11→17:31)
[2016-11-02] MEDS: LANSOPRAZOLE 15 MG TAB.RAP.DR PO SCH (05:11)
[2016-11-02] MEDS: ENOXAPARIN SODIUM INJ 40 MG/0.4 ML DISP.SYRIN SUBCUT SCH (07:47)
[2016-11-02] MEDS: PRIMIDONE 250 MG TABLET PO SCH ×2 (09:07→17:05)
[2016-11-02] MEDS: METOPROLOL SUCCINATE 50 MG TAB.SR.24H PO SCH (09:07)
[2016-11-02] MEDS: GUAIFENESIN 600 MG TABLET.SA PO SCH ×2 (09:08→21:52)
[2016-11-02] MEDS: ASPIRIN 81 MG TABLET, ENT COATED PO SCH (09:08)
[2016-11-02] MEDS: MULTIVITAMIN TABLET PO SCH (09:08)
[2016-11-02] MEDS: FLUTICASONE/SALMETEROL DISKUS 250-50 MCG/DOSE IH SCH ×2 (09:08→21:53)
[2016-11-02] MEDS: VANCOMYCIN HCL 1,500 MG in DEXTROSE 5%-WATER 250 ML IV SCH ×2 (09:09→23:48)
[2016-11-02] MEDS: ALBUTEROL SULFATE 0.083% NEB 2.5 MG/3 ML AMPUL NEB PRN (11:07)
--- NOTE | 2016-11-02 15:53 | PDOC PROGRESS REPORT ---
Subjective Progress Note for:: 11/02/16 Subjective:: reason for today's visit: f/u pneumonia, left sided chest pain hospital course: SHA GIRALDO is a 76 year old male presents to the hospital as a direct admit from Dr. Katz's office where he was seen in follow- up for a pneumonia. Several weeks ago he presented to the emergency department with complaint of left shoulder pain and was diagnosed with a right-sided pneumonia and placed on a ten-day course of doxycycline. He states he really didn't see much improvement during this time and so follow-up with his PCP and she placed him on Omnicef and prednisone. The prednisone seemed to alleviate much of his shoulder pain and he finished the second course of antibiotics 3 days ago. Since that time he has started having fevers of 101 with rigors at home again with recurrence of his cough and left shoulder pain. He is easily winded and wheezing off and on throughout the day. He has increased fatigue, decreased exercise tolerance. He describes the left shoulder pain is underneath his left shoulder blade, nonradiating and a constant aching pain without alleviating or exacerbating factors and no other associated symptoms. He has underlying COPD and wears nocturnal O2 at 3 L/m, he has not required supplemental oxygen through the day. He also has obstructive sleep apnea and is supposed to wear nocturnal CPAP but chooses not to. He was reportedly hemodynamically stable in her office with a room-air sat of 94% but a temperature of 102 and so we were asked to directly admit for further treatment and management. he was admitted to the hospital and labs remarkable only for a mild anemia, mild elevation of his BNP, good renal function, normal ecg and cardiac enzymes, neg flu screen and little else. I do not see an echo on record so that has been ordered for today. repeat ct chest looks frustratingly similar to the one performed in late Sep with persistent consolidation in the RLL, aortic and coronary calcifications and little else. Subjective: overall continues to improve, still feels ill but not nearly as bad as presentation. denies palpitations, orthopnea, PND, N/V/D and states his left sided chest pain is improved. ROS: per HPI plus a total of 10 systems reviewed, pertinent positives and negatives noted above, remaining systems negative. Physical Exam Vital Signs: Temp Pulse Resp BP Pulse Ox 98.2 F 80 20 114/56 L 99 11/02/16 11:45 11/02/16 11:45 11/02/16 11:45 11/02/16 11:45 11/02/16 11:45 Intake & Output 11/01/16 11/02/16 11/03/16 05:59 06:59 06:59 Intake Total Output Total Balance PHYSICAL EXAM GENERAL: NAD; well developed, well nourished; no obese; alert and oriented to person, place, time, situation HEENT: no conjunctival injection, no scleral icterus; oral mucosa moist, no post oropharynx erythema or edema RESPIRATORY: no accessory muscle use, no increased WOB, good air entry bilaterally; no wheezes, rales, rhonchi; coarse bilat R>L crackles CARDIO: no JVD; RRR; no systolic murmur; no tachycardia; chest wall is nontender to palp VASCULAR: no abdominal bruit; no pallor; 2+ radial, DP pulse; normal capillary refill GI: soft; nondistended; normal bowel sounds; no rebound, rigidity, guarding; nontender; there is a long linear diagonal scar across the right abdomen and at the distal most tip there is a small 1-1/2 cm opening of the wound that continues to ooze tannish creamy white, thick non-malodorous fluid NEURO: normal motor function; no gait abnls; no dysarthria; no nystagmus; tongue protrudes midline; MSK: 5/5 strength; normal ROM hips; ambulatory without assistance; no tenderness EXTREMITIES: no calf tender; no palpable cords in calf; no clubbing, cyanosis , pedal edema PSYCH: normal affect, normal mood SKIN: warm; moist; no petechiae; no telengectasias; no jaundice Assessment & Plan - Diagnosis (1) Pneumonia Qualifiers: Pneumonia type: due to unspecified organism Laterality: right Lung location: lower lobe of lung Qualified Code(s): J18.1 - Lobar pneumonia, unspecified organism Is this a current diagnosis for this admission?: YesPlan: He has a history of complicated pneumonia in the past with MRSA discovered in his sputum and requiring a prolonged course of antibiotics. He seems to be failing outpatient therapy with both Omnicef and doxycycline which should've provided at least good atypical coverage. He has not traveled outside the [facility], has not had any prolonged travel or immobility, has no sick contacts or exposure to tuberculosis or other unusual pathogens (ie legionella, etc) that he is aware of and has no worrisome symptoms of lianne sputum, hemoptysis, history of cavitary lesions, night sweats or weight loss. Continue broad-spectrum antibiotics to cover pseudomonas and MRSA. Sputum and blood cultures sent but so far unrevealing. I see a CT scan of the chest on October 17 that showed faint airspace disease on the right that persists on repeat CT Scan this admit. interestingly his is now down with the flu or other viral illness. I have suspected a viral source for him from the beginning but he screened negative for flu. will send EBV titers. slowly improving but it appears we are never going to identify an offending pathogen; recommend a course of outpt abx and if recurs after cessation then move to bronch with BAL to identify the organism. (2) Coronary artery disease Qualifiers: Coronary Disease-Associated Artery/Lesion type: [place] artery [place] vs. transplanted heart: [place] heart Associated angina: without angina Qualified Code(s): I25.10 - Atherosclerotic heart disease of [place] coronary artery without angina pectoris Is this a current diagnosis for this admission?: NoPlan: By history has coronary stents but I do not feel his left shoulder pain is a cardiac equivalent and screen with EKG and first set of cardiac enzymes reassuring and monitoring overnight negative for cardiac dysrhythmias. echo today shows no wall motion abnl's. (3) Left shoulder pain Qualifiers: Chronicity: acute Qualified Code(s): M25.512 - Pain in left shoulder Is this a current diagnosis for this admission?: Yes (4) History of nephrectomy, unilateral Is this a current diagnosis for this admission?: Yes (5) COPD (chronic obstructive pulmonary disease) Qualifiers: COPD type: unspecified COPD Qualified Code(s): J44.9 - Chronic obstructive pulmonary disease, unspecified Is this a current diagnosis for this admission?: Yes (6) Nonhealing surgical wound Qualifiers: Encounter type: initial encounter Qualified Code(s): T81.89XA - Other complications of procedures, not elsewhere classified, initial encounter Is this a current diagnosis for this admission?: Yes (7) Abnormal laboratory test Is this a current diagnosis for this admission?: YesPlan: elevated BNP; echo shows only some mild diastolic dysfunction as a possibility, good LV function with EF 60%. hold IVFs. - Time Time Spent with patient: 15-24 minutes Medications reviewed and adjusted accordingly: Yes Anticipated discharge: Home Within: within 24 hours
[2016-11-02] MEDS: LEVOFLOXACIN 750 MG/D5W RTU 750 MG/150 ML RTUPB IV SCH (21:11)
[2016-11-02] MEDS: ATORVASTATIN CALCIUM 20 MG TABLET PO SCH (21:52)
[2016-11-02] MEDS ORDERED: VANCOMYCIN HCL INJ 1000 MG VIAL ONE (23:26)
[2016-11-02] MEDS ORDERED: VANCOMYCIN HCL INJ 500 MG VIAL ONE (23:26)
[2016-11-03] MEDS: LANSOPRAZOLE 15 MG TAB.RAP.DR PO SCH (06:06)
[2016-11-03] MEDS: CEFEPIME HCL 2 GM in DEXTROSE 5%-WATER 50 ML IV SCH (06:07)
[2016-11-03] MEDS: PRIMIDONE 250 MG TABLET PO SCH (09:19)
[2016-11-03] MEDS: FLUTICASONE/SALMETEROL DISKUS 250-50 MCG/DOSE IH SCH (09:19)
[2016-11-03] MEDS: MULTIVITAMIN TABLET PO SCH (09:19)
[2016-11-03] MEDS: GUAIFENESIN 600 MG TABLET.SA PO SCH (09:19)
[2016-11-03] MEDS: ASPIRIN 81 MG TABLET, ENT COATED PO SCH (09:20)
[2016-11-03] MEDS: METOPROLOL SUCCINATE 50 MG TAB.SR.24H PO SCH (09:20)
[2016-11-03] MEDS: ENOXAPARIN SODIUM INJ 40 MG/0.4 ML DISP.SYRIN SUBCUT SCH (09:24)
[2016-11-03] MEDS: VANCOMYCIN HCL 1,500 MG in DEXTROSE 5%-WATER 250 ML IV SCH (09:27)
[2016-11-03 10:17] VITALS: BP 122/76
--- NOTE | 2016-11-03 16:39 | PDOC DISCHARGE SUMMARY ---
General - Admit/Disc Date/PCP Admission Date/Primary Care Provider: 10/30/16 17:01 GIORGIO ORTIZ MD Discharge Date: 11/03/16 - Discharge Diagnosis (1) Pneumonia Is this a current diagnosis for this admission?: YesSummary: He has a history of complicated pneumonia in the past with MRSA discovered in his sputum and requiring a prolonged course of antibiotics. He seems to be failing outpatient therapy with both Omnicef and doxycycline which should've provided at least good atypical coverage. He has not traveled outside the [facility], has not had any prolonged travel or immobility, has no sick contacts or exposure to tuberculosis or other unusual pathogens (ie legionella, etc) that he is aware of and has no worrisome symptoms of lianne sputum, hemoptysis, history of cavitary lesions, night sweats or weight loss. Continue broad-spectrum antibiotics to cover pseudomonas and MRSA. Sputum and blood cultures sent but so far unrevealing. I see a CT scan of the chest on October 17 that showed faint airspace disease on the right that persists on repeat CT Scan this admit. interestingly his is now down with the flu or other viral illness. I have suspected a viral source for him from the beginning but he screened negative for flu. will send EBV titers. slowly improving but it appears we are never going to identify an offending pathogen; recommend a course of outpt levaquin and if recurs after cessation then move to bronch with BAL to identify the organism. he is stable for discharge home at this time. (2) Coronary artery disease Is this a current diagnosis for this admission?: NoSummary: By history has coronary stents but I do not feel his left shoulder pain is a cardiac equivalent and screen with EKG and first set of cardiac enzymes reassuring and monitoring overnight negative for cardiac dysrhythmias. echo shows no wall motion abnl's. (3) Left shoulder pain Is this a current diagnosis for this admission?: YesSummary: I suspect referred pain from the right lower lobe infectious process given its close proximity to the pleural surface. I can find no other reasonable explanation at this time. (4) History of nephrectomy, unilateral Is this a current diagnosis for this admission?: Yes (5) COPD (chronic obstructive pulmonary disease) Is this a current diagnosis for this admission?: Yes (6) Nonhealing surgical wound Is this a current diagnosis for this admission?: Yes (7) Abnormal laboratory test Is this a current diagnosis for this admission?: Yes - Additional Information Resuscitation Status: Full Code Discharge Diet: As Tolerated Discharge Activity: Activity As Tolerated Home Medications: Aclidinium [place] [Tudorza Pressair] 1 puff IH BID 10/31/16 Albuterol Sulfate [Proair HFA Inhalation Aerosol 8.5 gm MDI] 1 puff IH BID 10/31 Ascorbic Acid [Vitamin C 500 mg Tablet] 500 mg PO DAILY 10/31/16 Aspirin [Adult Low Dose Aspirin EC] 81 mg PO DAILY 10/31/16 Atorvastatin Calcium [Lipitor 20 mg Tablet] 20 mg PO QHS 10/31/16 Bisacodyl [Dulcolax 5 mg Tablet] 5 mg PO Q72HP PRN 10/31/16 Diazepam [Valium 5 mg Tablet] 5 mg PO Q8HP PRN 10/31/16 Esomeprazole Magnesium [Nexium] 40 mg PO DAILY 10/31/16 Fluticasone/Salmeterol [Advair 250-50 Diskus 14 Dose/Diskus] 1 puff IH Q12 10/31 Ketoconazole [Nizoral 2% Shampoo 120 ml Bottle] 1 applic TOP ASDIR PRN 10/31/16 Metoprolol Succinate [Toprol Xl 50 mg Tab.sr] 50 mg PO DAILY 10/31/16 Multivitamins,Therapeutic [Thera] 1 tab PO DAILY 10/31/16 Nitroglycerin [Nitrostat 0.4 mg (1/150 Gr) Tabs 25/Bottle] 0.4 mg SL Q5MP PRN Oxycodone HCl/Acetaminophen [Percocet 5-325 mg Tablet] 1 tab PO Q4HP PRN Primidone [Mysoline 250 mg Tablet] 250 mg PO BID 10/31/16 Guaifenesin [Mucinex Sr 600 mg Tablet.sa] 600 mg PO Q12 #14 tablet.sa 11/03/16 Levofloxacin [Levaquin 750 mg Tablet] 750 mg PO DAILY #10 tab 11/03/16 History of Present Illness Patient complains of: Persisting cough and shortness of breath History of Present Illness: SHA GIRALDO is a 76 year old male presents to the hospital as a direct admit from Dr. Ortiz's office where he was seen in follow-up for a pneumonia. Several weeks ago he presented to the emergency department with complaint of left shoulder pain and was diagnosed with a right-sided pneumonia and placed on a ten-day course of doxycycline. He states he really didn't see much improvement during this time and so follow-up with his PCP and she placed him on Omnicef and prednisone. The prednisone seemed to alleviate much of his shoulder pain and he finished the second course of antibiotics 3 days ago. Since that time he has started having fevers of 101 with rigors at home again with recurrence of his cough and left shoulder pain. He is easily winded and wheezing off and on throughout the day. He has increased fatigue, decreased exercise tolerance. He describes the left shoulder pain is underneath his left shoulder blade, nonradiating and a constant aching pain without alleviating or exacerbating factors and no other associated symptoms. He has underlying COPD and wears nocturnal O2 at 3 L/m, he has not required supplemental oxygen through the day. He also has obstructive sleep apnea and is supposed to wear nocturnal CPAP but chooses not to. He was reportedly hemodynamically stable in her office with a room-air sat of 94% but a temperature of 102 and so we were asked to directly admit for further treatment and management. Hospital Course Hospital Course: he was admitted to the hospital and labs remarkable only for a mild anemia, mild elevation of his BNP, good renal function, normal ecg and cardiac enzymes, neg flu screen and little else. I did not see an echo on record so that ordered but did not show any acute findings. repeat ct chest looks frustratingly similar to the one performed in late Sep with persistent consolidation in the RLL, aortic and coronary calcifications and little else. he was treated with triple abx and did show some improvement. interestingly his is just diagnoses with viral illness raising the possibility in him as well in spite of the fact he screened negative for flu. I suspect a viral illness with bacterial superinfection. I did send EBV titers as one of the few viruses we can screen for that can cause pneumonia but those results are still pending as of this writing. his symptoms markedly improved after a single dose of decadron. Overall his condition is improved that he is stable for discharge home at this time. He is asked quite anxious to get back on his to continue helping her in her recovery from her flulike illness. Physical Exam Vital Signs: Temp Pulse Resp BP Pulse Ox 97.6 F 76 16 122/76 95 11/03/16 10:14 11/03/16 10:14 11/03/16 10:14 11/03/16 10:14 11/03/16 10:14 Intake & Output 11/02/16 11/03/16 11/04/16 06:59 06:59 06:59 Intake Total 1297 Output Total 1550 Balance -253 PHYSICAL EXAM GENERAL: NAD; well developed, well nourished; no obese; alert and oriented to person, place, time, situation HEENT: no conjunctival injection, no scleral icterus; oral mucosa moist, neck supple, no LAD, normal ROM; no post oropharynx erythema or edema RESPIRATORY: no accessory muscle use, no increased WOB, good air entry bilaterally; no wheezes, rales, rhonchi; coarse bilat crackles CARDIO: no JVD; RRR; no systolic murmur; no tachycardia; chest wall is nontender to palp VASCULAR: no abdominal bruit; no pallor; 2+ radial, DP pulse; normal capillary refill GI: soft; nondistended; normal bowel sounds; no rebound, rigidity, guarding; nontender; there is a long linear diagonal scar across the right abdomen and at the distal most tip there is a small 1-1/2 cm opening of the wound that continues to ooze tannish creamy white, thick non-malodorous fluid NEURO: normal motor function; no gait abnls; no dysarthria; no nystagmus; tongue protrudes midline; MSK: 5/5 strength; normal ROM hips; ambulatory without assistance; no tenderness EXTREMITIES: no calf tender; no palpable cords in calf; no clubbing, cyanosis , pedal edema PSYCH: normal affect, normal mood SKIN: warm; moist; no petechiae; no telengectasias; no jaundice; Results Laboratory Results: 11/01/16 06:55 11/01/16 09:52 10/30/16 10/30/16 11/01/16 19:40 19:40 05:31 Creatine Kinase 88 CK-MB (CK-2) 2.50 Troponin I < 0.012 NT-Pro-B Natriuret Pep 861 H 1070 H Impressions: Chest CT 10/30/16 00:00 IMPRESSION: EMPHYSEMATOUS CHANGES WITH CHRONIC SCARRING. MINIMAL RIGHT PLEURAL EFFUSION. PERSISTENT PATCHY DENSITY IN THE RIGHT COSTOPHRENIC SULCUS. NO SIGNIFICANT CHANGE. Qualifiers PATEINT BEING DISCHARGED WITH ANY OF THE FOLLOWING DIAGNOSIS?: No VTE patient discharged on overlapping Therapy?: No Plan Discharge Plan: Okay to discharge home with follow-up Dr. Ortiz later this week. Time Spent: Greater than 30 Minutes
[2016-11-04 17:50] LABS: EPSTEIN BARR EARLY AG IGG AB 97.3 U/mL (0.0-8.9)
== END 2016-11-03 12:04 | disposition home or self-care (01) | DRG 195 ==
LOC: 4N 17:01 → 2N 11-02 17:22
PROVIDERS: ADMIT Internal Medicine; ATTEND Internal Medicine
DX: J18.9 Pneumonia, unspecified organism (principal); I25.10 Atherosclerotic heart disease of native coronary artery without angina pectoris; M25.512 Pain in left shoulder; G47.33 Obstructive sleep apnea (adult) (pediatric); G47.30 Sleep apnea, unspecified; D64.9 Anemia, unspecified; I48.91 Unspecified atrial fibrillation; E78.5 Hyperlipidemia, unspecified; I12.9 Hypertensive chronic kidney disease with stage 1 through stage 4 chronic kidney disease, or unspecified chronic kidney disease; N18.2 Chronic kidney disease, stage 2 (mild); M19.90 Unspecified osteoarthritis, unspecified site; J44.9 Chronic obstructive pulmonary disease, unspecified; F17.210 Nicotine dependence, cigarettes, uncomplicated; T81.89XA Other complications of procedures, not elsewhere classified, initial encounter; I25.2 Old myocardial infarction; Z85.528 Personal history of other malignant neoplasm of kidney; Z95.5 Presence of coronary angioplasty implant and graft; Z90.5 Acquired absence of kidney; Z79.82 Long term (current) use of aspirin; Z82.49 Family history of ischemic heart disease and other diseases of the circulatory system; Z79.899 Other long term (current) drug therapy; Z88.8 Allergy status to other drugs, medicaments and biological substances; Z91.038 Other insect allergy status; Z86.14 Personal history of Methicillin resistant Staphylococcus aureus infection; Z90.49 Acquired absence of other specified parts of digestive tract
CPT/HCPCS: 36415; 71250; 80053; 80202; 82550; 82553; 82565; 83036; 83880; 84484; 85025; 86256; 86663; 86664; 86665; 87040; 87070; 87205; 87804; 93005; 93010; 93306; 94640; J0692; J1100; J1650; J1956; J3370; J3490; J7030; J7060

== ENCOUNTER → 2016-11-25 | Outpatient (CLI) | payer MEDICARE, OTHER | LOC: RAD 11:39 | PROVIDERS: ATTEND Family Medicine | DX: J15.9 Unspecified bacterial pneumonia (principal) | CPT/HCPCS: 71020 ==

== ENCOUNTER → 2017-01-26 | Outpatient (CLI) | payer MEDICARE, OTHER ==
--- NOTE | 2017-01-26 11:56 | RADIOLOGY REPORT (SQ) ---
EXAM DESCRIPTION: CT LUNG CANCER SCREENING COMPLETED DATE/TIME: 01/26/2017 9:47 am REASON FOR STUDY: TOBACCO USE F17.210 NICOTINE DEPENDENCE, CIGARETTES, UNCOMPLICATED Has the patient had a Chest CT scan within the past year? Yes Was the patient offered tobacco cessation counseling? Yes Was the patient engaged in shared decision making for this test? Yes Does the patient have signs or symptoms of Lung Cancer? No Is the patient a smoker? Yes How many packs per year? 180 How many years since quitting smoking? Not applicable Patients age: 76 COMPARISON: CT chest 08/05/2012, 04/11/2014, 10/17/2016, 10/30/2016 TECHNIQUE: Low Dose CT scan performed of the chest without intravenous contrast for purposes of scre ening for lung cancer. Images reviewed with lung, soft tissue and bone windows. Reconstructed coron al and sagittal MPR images reviewed. All images stored on PACS. All CT scanners at this facility use dose modulation, iterative reconstruction, and/or weight based d osing when appropriate to reduce radiation dose to as low as reasonably achievable (ALARA). [facility]: Dose Right [facility]: CareDose [facility]: Dose Right [facility]: Teradose 4D [facility]: [employer] RADIATION DOSE: 2.09 mGy. . LIMITATIONS: No technical limitations. FINDINGS: LUNG NODULES: Description: Small lung parenchymal scars less than 5 mm in size in the rig ht upper lobe unchanged compared to 2011 Size: Less than 5 mm There is bandlike consolidation in the right posterior costophrenic sulcus likely atelectasis or scar ring, unchanged compared to 10/17/2016 and 10/30/2016. There bandlike scarring or atelectasis in the li ngular apex, unchanged from 2013. REMAINING LUNGS AND PLEURA: Right pleural effusion seen on prior studies has resolved. No pleural calcifications. No pneumothorax. Obstructive lung disease. HILAR AND MEDIASTINAL STRUCTURES: No identified masses. No abnormal nodes. HEART AND VASCULAR STRUCTURES: No aortic aneurysm. No pericardial effusion. No cardiac devices. CORONARY ARTERY CALCIFICATIONS: Marked calcifications. UPPER ABDOMEN: No significant findings. THYROID AND OTHER SOFT TISSUES: No masses. No adenopathy. BONES: No significant finding. OTHER: Implanted cardiac monitoring device over the anterior left upper chest. IMPRESSION: BENIGN FINDINGS IN THE LUNGS. OTHER FINDINGS ABOVE. LUNGRADS: LUNGRADS: 2 BENIGN APPEARANCE OR BEHAVIOR. NODULES WITH A VERY LOW LIKELIHOOD OF BECOMIN G A CLINICALLY ACTIVE CANCER DUE TO SIZE OR LACK OF GROWTH. MODIFIER: NONE. RECOMMENDATION: Continue annual screening with LDCT in 12 months. COMMENT: CRITERIA: Solid nodule(s): < 6 mm; new < 4 mm. Part solid nodule(s): < 6 mm total diameter on baseline screening. Non solid nodule(s) (GGN): < 20 mm OR ? 20 and unchanged or slowly growing. Category 3 or 4 modules unchanged for ? 3 months. TECHNICAL DOCUMENTATION: JOB ID: [id number] Quality ID # [id number]: Final reports with documentation of one or more dose reduction techniques (e.g., Au tomated exposure control, adjustment of the mA and/or kV according to patient size, use of iterative reconstruction technique) 2010 [employer]
== END ==
LOC: RAD 14:00
PROVIDERS: ATTEND Family Medicine
DX: Z12.2 Encounter for screening for malignant neoplasm of respiratory organs (principal); F17.210 Nicotine dependence, cigarettes, uncomplicated; J44.9 Chronic obstructive pulmonary disease, unspecified
CPT/HCPCS: G0297

== ENCOUNTER 2017-09-28 15:06 | Emergency (ER) | payer MEDICARE, OTHER ==
[2017-09-28] MEDS ORDERED: NORMAL SALINE 250 ML IV PRN (16:10)
[2017-09-28] MEDS ORDERED: HEPARIN SODIUM,PORCINE/D5W 25,000 UNIT/250 ML RTUINJ IV PRN (16:10)
[2017-09-28] MEDS ORDERED: HEPARIN SOD (PORCINE) 1,000 UNIT/ML 10 ML VIAL IV ONE (16:10)
--- NOTE | 2017-09-28 16:13 | ER Document Report ---
ED Medical Screen (RME) - General Chief Complaint: Breathing Difficulty Stated Complaint: SHORTNESS OF BREATH Time Seen by Provider: 09/28/17 16:05 Notes: Patient smoker with a history of COPD. He woke from a nap with severe left lower extremity and left foot pain. The foot was white and numb. He states the pain is better but still feels numb. At triage I am unable to Doppler a pulse on the left but can easily Doppler pulse on the right. Patient is also been short of breath with exertion and has an increased recent cough. TRAVEL OUTSIDE OF THE [place] IN LAST 30 DAYS: No - Related Data Allergies/Adverse Reactions: tiotropium bromide [From Spiriva with HandiHaler] Allergy (Intermediate, Verified 09/28/17 15:15) Blurred vision amiodarone Allergy (Verified 09/28/17 15:15) hydroxyzine [From Atarax] Allergy (Verified 09/28/17 15:15) FIRE ANTS Allergy (Uncoded 09/28/17 15:15) THROAT AND GLANDS SWELL Past Medical History - Past Medical History Cardiac Medical History: Reports: Hx Atrial Fibrillation - Status post electrical cardioversion, Hx Heart Attack - 2012 has 2 stents, Hx Hypercholesterolemia, Hx Hypertension Denies: Hx Congestive Heart Failure, Hx Coronary Artery Disease Pulmonary Medical History: Reports: Hx Asthma, Hx COPD, Hx Sleep Apnea Denies: Hx Bronchitis, Hx Pneumonia Neurological Medical History: Denies: Hx Cerebrovascular Accident, Hx Seizures Renal/ Medical History: Denies: Hx Peritoneal Dialysis Malignancy Medical History: Reports Hx Renal (Kidney) Cancer Musculoskeltal Medical History: Reports Hx Arthritis Psychiatric Medical History: Reports: Hx Anxiety Past Surgical History: Reports: Hx Abdominal Surgery - whipple procedure, Hx Bowel Surgery - PIECE REMOVED, Hx Cardiac Catheterization - stent placement, Hx Cholecystectomy, Hx Coronary Stent, Hx Herniorrhaphy - SEVERAL, Hx Kidney ( Renal Surgery) - RIGHT NEPHRECTOMY, Hx Pancreatic Surgery - tumor removed, Hx Tonsillectomy - A CHILD. Denies: Hx Pacemaker - Immunizations Immunizations up to date: Yes Hx Diphtheria, Pertussis, Tetanus Vaccination: Yes Physical Exam - Vital signs Vitals: Temp Pulse Resp BP Pulse Ox 98.6 F 100 16 142/58 H 97 09/28/17 15:19 09/28/17 15:19 09/28/17 15:19 09/28/17 15:19 09/28/17 15:19 Course - Vital Signs Vital signs: Temp Pulse Resp BP Pulse Ox 98.6 F 100 16 142/58 H 97 09/28/17 15:19 09/28/17 15:19 09/28/17 15:19 09/28/17 15:19 09/28/17 15:19
[2017-09-28 16:38] LABS: ABSOLUTE BASOPHILS # (AUTO) 0.1 10^3/uL (0.0-0.2); ABSOLUTE EOSINOPHILS # (AUTO) 0.1 10^3/uL (0.0-0.6); ABSOLUTE MONOCYTES (AUTO) 1.3 10^3/uL (0.1-1.4); ABSOLUTE NEUT (AUTO) 8.8 10^3/uL (1.7-8.2); BASOPHILS % (AUTO) 0.5 % (0-2); EOSINOPHILS % (AUTO) 0.7 % (0-6); HEMATOCRIT 27.8 % (37.9-51.0); HEMOGLOBIN 8.9 g/dL (13.5-17.0); LYMPHOCYTES % (AUTO) 8.8 % (13-45); MEAN CORPUSCULAR HEMOGLOBIN 28.2 pg (27.0-33.4); MEAN CORPUSCULAR HGB CONC 32.1 g/dL (32.0-36.0); MEAN CORPUSCULAR VOLUME 88 fl (80-97); MONOCYTES % (AUTO) 11.6 % (3-13); PLATELET COUNT 263 10^3/uL (150-450); RED BLOOD COUNT 3.16 10^6/uL (4.35-5.55); RED CELL DISTRIBUTION WIDTH 15.2 % (11.5-14.0); SEGMENTED NEUTROPHILS % (AUTO) 78.4 % (42-78); TOTAL CELLS COUNTED % (AUTO) 100 %; WHITE BLOOD COUNT 11.2 10^3/uL (4.0-10.5)
[2017-09-28 16:46] LABS: INTERNATIONAL RATION (INR) 0.96; PROTHROMBIN TIME 13.5 SEC (11.4-15.4)
[2017-09-28 16:47] LABS: PARTIAL THROMBOPLASTIN TIME 31.5 SEC (23.5-35.8)
--- NOTE | 2017-09-28 16:50 | RADIOLOGY REPORT (SQ) ---
EXAM DESCRIPTION: CHEST SINGLE VIEW COMPLETED DATE/TIME: 09/28/2017 4:39 pm REASON FOR STUDY: cough/sob COMPARISON: 11/25/2016. EXAM PARAMETERS: NUMBER OF VIEWS: One view. TECHNIQUE: Single frontal radiographic view of the chest acquired. RADIATION DOSE: NA LIMITATIONS: None. FINDINGS: LUNGS AND PLEURA: Hyperinflation consistent with COPD. Hyperlucency of the upper lobes. Interval development of alveolar infiltrate at the right lung base with right pleural effusion. MEDIASTINUM AND HILAR STRUCTURES: No masses. Contour normal. HEART AND VASCULAR STRUCTURES: Heart normal in size. Normal vasculature. BONES: No acute findings. HARDWARE: Interval removal of loop recorder OTHER: No other significant finding. IMPRESSION: Interval development of right basilar pneumonia. Bilateral pleural thickening. Otherwi se, no acute disease. TECHNICAL DOCUMENTATION: JOB ID: [id number] [id number] 2010 [employer]- All Rights Reserved
--- NOTE | 2017-09-28 16:55 | ER Document Report ---
ED Respiratory Problem - General Chief Complaint: Breathing Difficulty Stated Complaint: SHORTNESS OF BREATH Time Seen by Provider: 09/28/17 16:05 Notes: Patient took a nap about 11:00 this morning and when he got up he walked out to the mailbox to get his mail. He noted severe pain in the anterior aspect of the left lower leg from just below the knee down to about the ankle. His severe pain to touch or move or try to walk on it there. No pain in the posterior aspect of the leg. Also noted he was getting out of breath very easily. Top of his foot appeared to be colorless and his foot felt cold to him. He has never had this problem before. Patient does have COPD which is been worse over the last 4-5 days. History of heart disease with cardiac cath and stent placement in the past. 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 History of anemia for which he gets iron transfusions. High cholesterol. Cholecystectomy. Right kidney removed for cancer. Hernia repairs. TRAVEL OUTSIDE OF THE [place] IN LAST 30 DAYS: No - Related Data Allergies/Adverse Reactions: tiotropium bromide [From Spiriva with HandiHaler] Allergy (Intermediate, Verified 09/28/17 15:15) Blurred vision amiodarone Allergy (Verified 09/28/17 15:15) hydroxyzine [From Atarax] Allergy (Verified 09/28/17 15:15) FIRE ANTS Allergy (Uncoded 09/28/17 15:15) THROAT AND GLANDS SWELL Past Medical History - Social History Smoking Status: Former Smoker Family History: Reviewed & Not Pertinent, CAD Patient has suicidal ideation: No Patient has homicidal ideation: No - Past Medical History Cardiac Medical History: Reports: Hx Atrial Fibrillation - Status post electrical cardioversion, Hx Heart Attack - 2012 has 2 stents, Hx Hypercholesterolemia, Hx Hypertension Pulmonary Medical History: Reports: Hx Asthma, Hx COPD, Hx Pneumonia, Hx Sleep Apnea Renal/ Medical History: Reports: Other - Nephrectomy for cancer of the kidney. Malignancy Medical History: Reports Hx Renal (Kidney) Cancer Musculoskeltal Medical History: Reports Hx Arthritis Psychiatric Medical History: Reports: Hx Anxiety Past Surgical History: Reports: Hx Abdominal Surgery - whipple procedure, Hx Bowel Surgery - PIECE REMOVED, Hx Cardiac Catheterization - stent placement, Hx Cholecystectomy, Hx Coronary Stent, Hx Herniorrhaphy - SEVERAL, Hx Kidney ( Renal Surgery) - RIGHT NEPHRECTOMY, Hx Pancreatic Surgery - tumor removed, Hx Tonsillectomy - A CHILD - Immunizations Immunizations up to date: Yes Hx Diphtheria, Pertussis, Tetanus Vaccination: Yes Hx Pneumococcal Vaccination: 11/06/12 Review of Systems - Review of Systems Notes: REVIEW OF SYSTEMS: CONSTITUTIONAL : Denies fever. EENT: Denies eye, ear, nose or mouth or throat pain or other symptoms. CARDIOVASCULAR: Denies chest pain. RESPIRATORY: See HPI. GASTROINTESTINAL: Denies abdominal pain or nausea, vomiting, or diarrhea. GENITOURINARY: Denies difficulty or painful urinating, urinary frequency, blood in urine. MUSCULOSKELETAL: Denies back or neck pain. Denies joint pain or swelling. See HPI no pain or swelling of the posterior aspect of the left lower leg. SKIN: Denies rash or skin lesions. NEUROLOGICAL: Denies LOC or altered mental status. Denies headache. Denies sensory loss or motor deficits. ALL OTHER SYSTEMS REVIEWED AND NEGATIVE. Physical Exam - Vital signs Vitals: Temp Pulse Resp BP Pulse Ox 98.6 F 100 16 142/58 H 97 09/28/17 15:19 09/28/17 15:19 09/28/17 15:19 09/28/17 15:19 09/28/17 15:19 Interpretation: Normal - Notes Notes: PHYSICAL EXAMINATION: GENERAL: Very anxious. Vital signs are all essentially normal. HEAD: Atraumatic, normocephalic. NECK: Normal range of motion, supple. LUNGS: Breath sounds with some scattered rhonchi and rales bilaterally. Good airflow and exchange. HEART: Regular rate and rhythm without murmurs. ABDOMEN: Soft, nontender. No guarding or rebound. No masses. BACK: No tenderness throughout entire back. EXTREMITIES: Tender to palpate the anterolateral aspect of the patient's left lower leg. I cannot palpate a dorsalis pedis or posterior tibial pulse on the left side although I can palpate a good dorsalis pedis pulse on the right side. Patient's toes have a blue hue on both feet and capillary refill is slow in both toes. NEUROLOGICAL: Normal speech, unable to stand or walk because of the pain. Normal sensory, motor, and reflex exams. Awake, alert, and oriented x3. Cranial nerves normal. PSYCH: Normal mood, normal affect. SKIN: Warm, dry, no rashes. Course - Re-evaluation Re-evalutation: Venous Doppler showed little or no flow below the left knee. Only a trickle of blood going through the dorsalis pedis on the left foot. I called and spoke with a Dr. Hatfield, in [place], and he feels the patient needs to be transferred there to be seen today. I also spoke to the hospitalist (Dr. Carranza) at [facility] who accepted the patient for transfer. 1 g of Rocephin was ordered IV as well as 500 mg of Zithromax p.o. to begin to treat his pneumonia. Transport is here to take the patient to [place]. Patient has remained stable throughout his stay here. Vital signs are all normal. 09/28/17 20:12 - Vital Signs Vital signs: Temp Pulse Resp BP Pulse Ox 99.9 F 100 24 H 118/62 94 09/28/17 20:06 09/28/17 15:19 09/28/17 20:06 09/28/17 20:06 09/28/17 20:06 - Laboratory Result Diagrams: 09/28/17 16:27 09/28/17 16:27 Laboratory results interpreted by me: 09/28/17 09/28/17 16:27 16:27 WBC 11.2 H RBC 3.16 L Hgb 8.9 L Hct 27.8 L RDW 15.2 H Seg Neutrophils % 78.4 H Lymphocytes % 8.8 L Absolute Neutrophils 8.8 H Chloride 109 H - Diagnostic Test Radiology results interpreted by me: 09/28/17 20:02 Chest x-ray shows a right lower lobe pneumonia. Discharge - Discharge Clinical Impression: Vascular insufficiency of extremity, Pneumonia Condition: Stable Disposition: [facility] Referrals: GIORGIO ORTIZ MD [Primary Care Provider] - Follow up as needed
[2017-09-28 16:57] LABS: ALANINE AMINOTRANSFERASE 37 U/L (21-72); ALBUMIN 3.6 g/dL (3.5-5.0); ALKALINE PHOSPHATASE 114 U/L (38-126); ANION GAP 7 (5-19); ASPARTATE AMINO TRANSFERASE 26 U/L (17-59); BILIRUBIN,DIRECT 0.1 mg/dL (0.0-0.4); BILIRUBIN,TOTAL 0.3 mg/dL (0.2-1.3); BLOOD UREA NITROGEN 11 mg/dL (7-20); CALCIUM 9.1 mg/dL (8.4-10.2); CARBON DIOXIDE 25 mmol/L (22-30); CHLORIDE 109 mmol/L (98-107); GLUCOSE 87 mg/dL (75-110); POTASSIUM 4.4 mmol/L (3.6-5.0); SODIUM 140.7 mmol/L (137-145); TOTAL PROTEIN 6.3 g/dL (6.3-8.2)
[2017-09-28] MEDS ORDERED: CEFTRIAXONE INJ 1000 MG VIAL IV ONE (18:41)
[2017-09-28] MEDS ORDERED: AZITHROMYCIN 250 MG TABLET PO ONE (18:42)
[2017-09-28] MEDS ORDERED: HEPARIN SOD (PORCINE) 1,000 UNIT/ML 10 ML VIAL IV PRN (19:11)
[2017-09-28] MEDS ORDERED: CEFTRIAXONE SODIUM 1,000 MG in NORMAL SALINE 50 ML IV ONE (20:00)
[2017-09-28 20:10] VITALS: BP 118/62
--- NOTE | 2017-09-29 10:15 | XCELERA REPORT ---
[address] [address] Lower Extremity Arterial Evaluation Name: SHA GIRALDO Age: 77 yrs Gender: Male : 1940 Patient Status: Preadmit Patient Location: ER Study Date: 09/28/2017 04:35 PM Procedure: A color flow and duplex scan of the lower extremity arteries was performed on the left with velocity and waveform anaylsis. Reason For Study: pain/color change Ordering Physician: MYRANDA HENDERSON Performed By: Vaishnavi Jones Measurements and Calculations Right Left [employer]S PSV 164.1 cm/sec Prox PFA PSV -150.2 cm/sec Prox SFA PSV 54.4 cm/sec Mid SFA PSV -22.8 cm/sec Dist SFA PSV -18.3 cm/sec Prox Pop A PSV 34.6 cm/sec Dist [employer] PSV 17.1 cm/sec Romel Pedis PSV 55.0 8.4 cm/sec Right Side Arterial Evaluation Very limited study showing biphasic waveform. Left Side Arterial Evaluation Normal velocity and triphasic waveforms noted in the Common Femoral artery. Biphasic in the Femoral, monophasic with trickle flow to the infrageniculate vessels. Occluded Anterior Tibial artery. 20-49 % stenosis at the Femoral artery. Very bad sequential disease. Ankle Brachial index was not done. Critical Findings Called in to the Emergency Room. Interpretation Summary Very severe arterial compromise on left, multisegmental, compatible with tissue loss. : MYRANDA HENDERSON > Cristian Bar
== END 2017-09-28 20:20 | disposition short-term general hospital (02) ==
LOC: ER 15:06
DX: J18.9 Pneumonia, unspecified organism (principal); I87.2 Venous insufficiency (chronic) (peripheral); R06.02 Shortness of breath; M79.605 Pain in left leg; Z87.891 Personal history of nicotine dependence
CPT/HCPCS: 99285; 96365; 96366; 96368; 36415; 87040; 85025; 85610; 85730; 80053; 93926 ×2; 71045; J1644 ×2; A9270; J0696

== ENCOUNTER → 2017-10-12 | Outpatient (CLI) | payer MEDICARE, OTHER ==
--- NOTE | 2017-10-12 16:59 | RADIOLOGY REPORT (SQ) ---
EXAM DESCRIPTION: CHEST PA/LAT COMPLETED DATE/TIME: 10/12/2017 3:59 pm REASON FOR STUDY: UNSPECIFIED BACTERIAL PNEUMONIA COMPARISON: 11/25/2016 EXAM PARAMETERS: NUMBER OF VIEWS: two views TECHNIQUE: Digital Frontal and Lateral radiographic views of the chest acquired. RADIATION DOSE: NA LIMITATIONS: none FINDINGS: LUNGS AND PLEURA: COPD. Mild chronic pleural-parenchymal changes are noted in the right b ase the findings appearing slightly more prominent than on the prior study raising the possibility of superimposed active pneumonia. No left effusion. Left lung is clear. MEDIASTINUM AND HILAR STRUCTURES: No masses or contour abnormalities. HEART AND VASCULAR STRUCTURES: Heart normal size. No evidence for failure. BONES: No acute findings. Osteopenia. Mild thoracic spondylosis. HARDWARE: None in the chest. OTHER: No other significant finding. IMPRESSION: 1. Mild chronic changes in the right base which appears slightly more prominent than on the prior study raising the possibility of superimposed active pneumonia. 2. COPD. TECHNICAL DOCUMENTATION: JOB ID: [id number] [employer]- All Rights Reserved
== END ==
LOC: RAD 15:29
PROVIDERS: ATTEND Family Medicine
DX: J15.9 Unspecified bacterial pneumonia (principal)
CPT/HCPCS: 71046

== ENCOUNTER → 2018-02-23 | Outpatient (CLI) | payer MEDICARE, OTHER ==
--- NOTE | 2018-02-23 13:05 | RADIOLOGY REPORT (SQ) ---
EXAM DESCRIPTION: VENOUS UNILATERAL LOWER COMPLETED DATE/TIME: 02/23/2018 12:17 pm REASON FOR STUDY: LLE EDEMA R60.0 LOCALIZED EDEMA COMPARISON: None. TECHNIQUE: Dynamic and static pope scale and color images acquired of the left leg venous system. Se lected spectral images acquired with additional compression and augmentation maneuvers. The contralat eral common femoral vein and saphenofemoral junction were also imaged. Images stored on PACS. LIMITATIONS: None. FINDINGS: LEFT COMMON FEMORAL: Normal phasicity, compression and augmentation. No visualized echogenic material on g ray scale. No defects on color images. FEMORAL: Normal compression and augmentation. No visualized echogenic material on pope scale. No defe cts on color images. POPLITEAL: Normal compression, augmentation. No visualized echogenic material on pope scale. No defec ts on color images. CALF VESSELS: Normal compression, augmentation. No visualized echogenic material on pope scale. No de fects on color images. GSV and SSV: Normal compression, augmentation. No visualized echogenic material on pope scale. No def ects on color images. ANY DEEP VENOUS INSUFFICIENCY: No reflux on Valsalva ANY EVIDENCE OF POPLITEAL CYST: No. OTHER: No other significant finding. RIGHT COMMON FEMORAL VEIN AND SAPHENOFEMORAL JUNCTION: Normal phasicity, compression and augmentation. No visualized echogenic material on pope scale. No de fects on color images. IMPRESSION: NO EVIDENCE OF DVT OR SVT IN THE LEFT LEG. TECHNICAL DOCUMENTATION: JOB ID: [id number] [employer]- All Rights Reserved Reading location - IP/workstation name: [email or web address]
== END ==
LOC: SP 09:23
PROVIDERS: ATTEND Internal Medicine Nephrology
DX: R60.0 Localized edema (principal)
CPT/HCPCS: 93971

== ENCOUNTER → 2018-06-03 | Outpatient (CLI) | payer MEDICARE, OTHER ==
--- NOTE | 2018-06-03 13:21 | RADIOLOGY REPORT (SQ) ---
EXAM DESCRIPTION: CHEST PA/LATERAL COMPLETED DATE/TIME: 06/03/2018 1:07 pm REASON FOR STUDY: R06.02, SOB COMPARISON: 10/12/2017 EXAM PARAMETERS: NUMBER OF VIEWS: two views TECHNIQUE: Digital Frontal and Lateral radiographic views of the chest acquired. RADIATION DOSE: NA LIMITATIONS: none FINDINGS: LUNGS AND PLEURA: Findings of COPD. Chronic mild pleuroparenchymal changes right lung ba se. The left lung is clear. No evidence of pneumothorax. MEDIASTINUM AND HILAR STRUCTURES: No masses or contour abnormalities. HEART AND VASCULAR STRUCTURES: Heart normal size. No evidence for failure. BONES: No acute findings. HARDWARE: None in the chest. OTHER: No other significant finding. IMPRESSION: 1. Stable chronic mild pleuroparenchymal changes at the right lung base. Findings of C OPD. No acute changes. TECHNICAL DOCUMENTATION: JOB ID: [id number] [employer]- All Rights Reserved Reading location - IP/workstation name: [email or web address]
== END ==
LOC: OD 12:47
PROVIDERS: ATTEND Family Medicine
DX: J44.9 Chronic obstructive pulmonary disease, unspecified (principal); R06.02 Shortness of breath
CPT/HCPCS: 71046

== ENCOUNTER → 2020-03-02 | Outpatient (CLI) | payer MEDICARE, OTHER ==
[2020-03-02 10:46] LABS: ABSOLUTE BASOPHILS # (AUTO) 0.1 10^3/uL (0.0-0.2); ABSOLUTE EOSINOPHILS # (AUTO) 0.3 10^3/uL (0.0-0.6); ABSOLUTE LYMPHOCYTES (AUTO) 1.3 10^3/uL (0.5-4.7); ABSOLUTE MONOCYTES (AUTO) 0.7 10^3/uL (0.1-1.4); BASOPHILS % (AUTO) 1.1 % (0-2); EOSINOPHILS % (AUTO) 4.7 % (0-6); HEMATOCRIT 42.7 % (37.9-51.0); HEMOGLOBIN 14.2 g/dL (13.5-17.0); LYMPHOCYTES % (AUTO) 16.9 % (13-45); MEAN CORPUSCULAR HGB CONC 33.2 g/dL (32.0-36.0); MEAN CORPUSCULAR VOLUME 91 fl (80-97); PLATELET COUNT 179 10^3/uL (150-450); RED BLOOD COUNT 4.72 10^6/uL (4.35-5.55); SEGMENTED NEUTROPHILS % (AUTO) 67.3 % (42-78); TOTAL CELLS COUNTED % (AUTO) 100 %; WHITE BLOOD COUNT 7.5 10^3/uL (4.0-10.5)
--- NOTE | 2020-03-02 10:55 | RADIOLOGY REPORT (SQ) ---
EXAM DESCRIPTION: CHEST PA/LATERAL IMAGES COMPLETED DATE/TIME: 03/02/2020 10:03 am REASON FOR STUDY: SHORTNESS OF BREATH Z79.899 OTHER HALFWAY (CURRENT) DRUG THERAPY E78.5 HYPERLI PIDEMIA, UNSPECIFIED N18.3 CHRONIC KIDNEY DISEASE, STAGE 3 (MODERATE) COMPARISON: 2017. NUMBER OF VIEWS: Two view. TECHNIQUE: Frontal and lateral radiographic views of the chest acquired. LIMITATIONS: None. FINDINGS: LUNGS AND PLEURA: Chronic areas of scar, hyperinflation, basilar opacity and blunting of t he costophrenic angles without progression. MEDIASTINUM AND HILAR STRUCTURES: No masses. No contour abnormalities. HEART AND VASCULAR STRUCTURES: Stable heart size. No congestive failure BONES: No acute findings. HARDWARE: None in the chest. OTHER: No other significant finding. IMPRESSION: Chronic changes of COPD. TECHNICAL DOCUMENTATION: JOB ID: [id number] 2010 [employer]- All Rights Reserved Reading location - IP/workstation name: [email or web address]
[2020-03-02 11:00] LABS: ALBUMIN 3.8 g/dL (3.5-5.0); ALKALINE PHOSPHATASE 148 U/L (38-126); ASPARTATE AMINO TRANSFERASE 33 U/L (17-59); BILIRUBIN,DIRECT 0.1 mg/dL (0.0-0.4); BILIRUBIN,TOTAL 0.6 mg/dL (0.2-1.3); BLOOD UREA NITROGEN 14 mg/dL (7-20); CALCIUM 9.6 mg/dL (8.4-10.2); CARBON DIOXIDE 26 mmol/L (22-30); CHLORIDE 108 mmol/L (98-107); CHOLESTEROL 127.05 mg/dL (0-200); GLUCOSE 94 mg/dL (75-110); POTASSIUM 5.2 mmol/L (3.6-5.0); TOTAL PROTEIN 7.3 g/dL (6.3-8.2); TRIGLYCERIDES 74 mg/dL (<150)
[2020-03-02 11:10] LABS: DIRECT LDL 64 mg/dL (<100)
[2020-03-02 11:14] LABS: ANION GAP 4 (5-19)
== END ==
LOC: OD 09:35
PROVIDERS: ATTEND Family Medicine
DX: Z79.899 Other long term (current) drug therapy (principal); E78.5 Hyperlipidemia, unspecified; N18.3 Chronic kidney disease, stage 3 (moderate); R06.02 Shortness of breath
CPT/HCPCS: 36415; 71046; 80053; 80061; 82306; 83735; 84443; 85025